=== PATIENT | female | born 1950 | race Caucasian/White ===

== ENCOUNTER 2016-11-09 11:10 | Inpatient (IN) | payer OTHER ==
[2016-11-09 11:59] VITALS: BMI 26.2
[2016-11-09] MEDS ORDERED: Levalbuterol 1.25 MG/3 ML Inhal Soln UD IH STA ×2 (12:12→14:15)
[2016-11-09] MEDS ORDERED: guaiFENesin 200 mg/10 ml Syrup UD PO STA (12:12)
[2016-11-09] MEDS ORDERED: Ipratropium 0.02% Inhal Soln (0.5 mg/2.5 ml) UD IH STA ×2 (12:13→14:15)
[2016-11-09] MEDS ORDERED: Sodium Chloride 0.9% 500 ML IV STA (12:13)
--- NOTE | 2016-11-09 12:20 | ED PDOC ---
Arrival/HPI - General Chief Complaint: Cough, Cold, Congestion Time Seen by Provider: 11/09/16 11:34 Historian: Patient - History of Present Illness Narrative History of Present Illness (Text): 11/09/16 12:05 A 65 year old female, whose past medical history includes pulmonary hypertension , COPD, CAD with stents, and hypothyroidism, was brought in by daughter and presents to the emergency department complaining of fever, cough, and migraine headache for 4 days. Patient has been experiencing migraines for seven years and says that the headache is L sided associated with nausea and feels like a typical migraine. It is not responding to the fioricet which she usually takes for it. It is mentioned that patient had taken oxygen at home but it has been discontinued a few months ago. Patient's daughter reports that patient was visiting from [place] for a family member's wedding, and symptoms began afterwards. Patient notes experiencing nausea, shortness of breath, and constipation, but denies of any vomiting, abdominal pain, diarrhea, or any other complaints. PMD: in [place] Symptom Course: Unchanged Context: Home Past Medical History - Provider Review Nursing Documentation Reviewed: Yes - Travel History If Yes, travel location?: [place] - Infectious Disease Hx of Infectious Diseases: None - Reproductive Menopause: Yes - Cardiac Hx Cardiac Disorders: Yes Hx OH: Yes Hx Hypertension: Yes Other/Comment: stent placed - Pulmonary Hx Respiratory Disorders: Yes Hx Emphysema: Yes Other/Comment: pulmonary HTN - Neurological Hx Neurological Disorder: Yes Hx Migraine: Yes - HEENT Hx HEENT Disorder: No - Renal Hx Renal Disorder: No - Endocrine/Metabolic Hx Endocrine Disorders: Yes Hx Hyperthyroidism: Yes - Hematological/Oncological Hx Blood Disorders: No - Integumentary Hx Dermatological Disorder: No - Musculoskeletal/Rheumatological Hx Musculoskeletal Disorders: Yes Hx Arthritis: Yes - Gastrointestinal Hx Gastrointestinal Disorders: No - Genitourinary/Gynecological Hx Genitourinary Disorders: No - Psychiatric Hx Substance Use: No - Surgical History Hx Cardiac Catheterization: Yes Hx Coronary Stent: Yes Other/Comment: R foot surgery - Anesthesia Hx Anesthesia: Yes Hx Anesthesia Reactions: No Family/Social History - Physician Review Nursing Documentation Reviewed: Yes Family/Social History: No Known Family HX Smoking Status: Never Smoked Hx Alcohol Use: No Hx Substance Use: No Allergies/Home Meds Allergies/Adverse Reactions: Allergies No Known Allergies Allergy (Verified 11/09/16 11:46) Home Medications: Home Meds Medication Instructions Recorded Confirmed Aspirin [Ecotrin] 1 tab PO DAILY 11/09/16 11/09/16 Fenofibrate,Micronized 1 tab PO DAILY 11/09/16 11/09/16 [Fenofibrate] Levothyroxine [Synthroid] 1 tab PO DAILY 11/09/16 11/09/16 Losartan/Hydrochlorothiazide 1 tab PO DAILY 11/09/16 11/09/16 [Losartan-Hctz 100-12.5 mg Tab] Omeprazole [Omeprazole] 20 mg PO DAILY 11/09/16 11/09/16 Sertraline [Zoloft] 50 mg PO DAILY 11/09/16 11/09/16 Sildenafil [Revatio] 20 mg PO TID 11/09/16 11/09/16 diltiaZEM [Cardizem] 60 mg PO DAILY 11/09/16 11/09/16 Review of Systems - Physician Review All systems were reviewed & negative as marked: Yes - Review of Systems Constitutional: Fevers (subjective). absent: Night Sweats ENT: Rhinorrhea (mild) Respiratory: SOB, Cough Cardiovascular: SORENSEN. absent: Chest Pain Gastrointestinal: Nausea. absent: Abdominal Pain, Constipation, Diarrhea, Vomiting Genitourinary Female: absent: Dysuria Neurological: Headache (consistent with previous migraine) Physical Exam Vital Signs Reviewed: Yes (O2 sat is 91-94% on room air) Vital Signs Temp Pulse Resp BP Pulse Ox 11/09/16 13:39 69 18 136/71 95 11/09/16 12:11 99.4 F 11/09/16 11:50 97.3 F L 75 18 138/76 94 L Temperature: Afebrile Blood Pressure: Normal Pulse: Regular Respiratory Rate: Normal Appearance: Positive for: Ill-Appearing Pain Distress: None Mental Status: Positive for: Alert and Oriented X 3 - Systems Exam Head: Present: Atraumatic, Normocephalic Pupils: Present: PERRL Conjunctiva: Present: Normal Mouth: Present: Moist Mucous Membranes Pharnyx: Present: Normal. No: ERYTHEMA, EXUDATE Neck: Present: Normal Range of Motion Respiratory/Chest: Present: Wheezes (mild wheezing). No: Rhonchi Cardiovascular: Present: Regular Rate and Rhythm, Normal S1, S2. No: Murmurs Abdomen: Present: Normal Bowel Sounds. No: Tenderness, Distention, Peritoneal Signs Back: Present: Normal Inspection Upper Extremity: Present: Normal Inspection. No: Cyanosis, Edema Lower Extremity: Present: Normal Inspection. No: Edema Neurological: Present: GCS=15, CN II-XII Intact, Speech Normal Skin: Present: Warm, Dry, Normal Color. No: Rashes Psychiatric: Present: Alert, Oriented x 3, Normal Insight, Normal Concentration Medical Decision Making ED Course and Treatment: 11/09/16 12:13 Impression: 65 year old female with cough, subjective fever, and migraine headache. Physical exam shows mild wheezing. Differential: COPD exacerbation vs pneumonia vs CHF Plan: -- Blood Gas -- EKG -- Chest X-ray -- Urinalysis -- Labs -- Tylenol -- Robitussin -- Atrovent -- Toradol -- Xopenex -- Medrol -- Reglan -- IV Fluids -- Blood Culture -- Reassess and disposition Progress Notes: 11/09/2016 13:17:27 Chest X-ray FINDINGS: LUNGS: There is moderate to severe peribronchial thickening especially on the right consistent with bronchitis. No evidence of pneumonia PLEURA: No significant pleural effusion identified. No pneumothorax apparent. CARDIOVASCULAR: Normal. OSSEOUS STRUCTURES: No significant abnormalities. VISUALIZED UPPER ABDOMEN: Normal. OTHER FINDINGS: None. IMPRESSION: There is moderate to severe peribronchial thickening especially on the right consistent with bronchitis. No evidence of pneumonia Dictator : Mayco Hansen MD 11/09/16 14:10 EKG: Ordered, reviewed, and independently interpreted the EKG. Rate : 74 BPM Rhythm : NSR Interpretation : No ST-segment elevations or depressions, no T-wave inversions, normal intervals. 1/2 mm, ST-segment elevation b5 b6, inteverted T-wave b5 b6, T -wave flattening 2,3 AVF. QRS 106, normal access. Comparison : No previous EKG for comparison. 11/09/16 14:25 Patient with noted history; given steroids and nebs and starting to feel better but persistently hypoxic at 91% on room air, so will need further observation for copd treatment. Additionally, the patient's EKG is abnormal with a history of CAD with stents and no old for comparison. Troponin is 0.03, so indeterminate with an elevated BNP at 1200, so will need further observation on tele and cardiology assessment. Patient will be placed on tele on observation on the on-call attending's service, Dr. Sanches, as discussed with her. - Lab Interpretations Lab Results: 11/09/16 12:18 11/09/16 12:18 Lab Results 11/09/16 12:20: pCO2 32 L, pO2 86.0, HCO3 23.3, ABG pH 7.47 H, ABG Total CO2 24.3, ABG O2 Saturation 97.7, ABG Base Excess 0.2, ABG Potassium 3.6, Glucose 102, Lactate 1.0, FiO2 21.0, Sodium 141.0, Chloride 108.0 H, Arterial Blood Potassium 3.6 11/09/16 12:18: Sodium 145, Potassium 4.4, Chloride 106, Carbon Dioxide 27, Anion Gap 16, BUN 12, Creatinine 0.7, Est GFR ( Amer) > 60, Est GFR (Non- Af Amer) > 60, Random Glucose 104, Calcium 9.3, Total Bilirubin 0.6, AST 52 H, ALT 55, Alkaline Phosphatase 55, Lactate Dehydrogenase 751 H, Total Creatine Kinase 186, Troponin I 0.03, NT-Pro-B Natriuret Pep 1200 H, Total Protein 7.8, Albumin 4.4, Globulin 3.3, Albumin/Globulin Ratio 1.3, Lipase 78 11/09/16 12:18: PT 10.7, INR 0.99, APTT 31.7 H 11/09/16 12:18: WBC 7.6, RBC 4.05, Hgb 12.2, Hct 36.8, MCV 90.9, MCH 30.1, MCHC 33.2, RDW 13.8, Plt Count 185, MPV 11.9 H, Gran % 60.6, Lymph % (Auto) 29.0, [place] % (Auto) 9.2 H, Eos % (Auto) 0.9 L, Baso % (Auto) 0.3, Gran # 4.61, Lymph # 2.2, [place] # 0.7 H, Eos # 0.1, Baso # 0.02 I have reviewed the lab results: Yes - RAD Interpretation Radiology Orders: 11/09/16 12:10 CHEST TWO VIEWS (PA/LAT) [RAD] Stat - Medication Orders Current Medication Orders: Levofloxacin/Dextrose (Levaquin 750mg) 750 mg in 150 mls @ 100 mls/hr IVPB STAT STA Stop: 11/09/16 15:44 Discontinued Medications Acetaminophen (Tylenol 325mg Tab) 650 mg PO STAT STA Stop: 11/09/16 12:14 Last Admin: 11/09/16 12:37 Dose: 650 mg Re-Assess: [facility] Pain/Vitals Document 11/09/16 13:37 GMD (Rec: 11/09/16 14:16 GMD [id number] Pain Reassessment Is This A Pain ReAssessment? Yes Sleep Is patient sleeping during reassessment? Yes Furosemide (Lasix) 40 mg IVP STAT STA Stop: 11/09/16 14:16 Guaifenesin (Robitussin) 400 mg PO ONCE STA Stop: 11/09/16 12:13 Last Admin: 11/09/16 12:36 Dose: 400 mg Sodium Chloride (Sodium Chloride 0.9%) 500 mls @ 999 mls/hr IV .Q31M STA Stop: 11/09/16 12:43 Last Admin: 11/09/16 12:37 Dose: 999 mls/hr Ipratropium [place] (Atrovent) 0.5 mg IH STAT STA Stop: 11/09/16 12:14 Last Admin: 11/09/16 12:37 Dose: 0.5 mg Ipratropium [place] (Atrovent) 0.5 mg IH STAT STA Stop: 11/09/16 14:16 Ketorolac Tromethamine (Toradol) 15 mg IVP STAT STA Stop: 11/09/16 12:14 Last Admin: 11/09/16 12:37 Dose: 15 mg Re-Assess: [facility] Pain Assessment Document 11/09/16 13:37 GMD (Rec: 11/09/16 14:16 GMD [facility] [id number]) Pain Reassessment Is this a pain reassessment? Yes Sleep Is patient sleeping during reassessment? Yes Levalbuterol HCl (Xopenex) 1.25 mg IH STAT STA Stop: 11/09/16 12:13 Last Admin: 11/09/16 12:37 Dose: 1.25 mg Levalbuterol HCl (Xopenex) 1.25 mg IH STAT STA Stop: 11/09/16 14:16 Methylprednisolone (Solu-Medrol) 125 mg IVP STAT STA Stop: 11/09/16 12:14 Last Admin: 11/09/16 12:37 Dose: 125 mg Metoclopramide HCl (Reglan) 10 mg IVP STAT STA Stop: 11/09/16 12:14 Last Admin: 11/09/16 12:37 Dose: 10 mg - Scribe Statement The provider has reviewed the documentation as recorded by the Jet Puente Provider Scribe Attestation: All medical record entries made by the Jet were at my direction and personally dictated by me. I have reviewed the chart and agree that the record accurately reflects my personal performance of the history, physical exam, medical decision making, and the department course for this patient. I have also personally directed, reviewed, and agree with the discharge instructions and disposition. Disposition/Present on Arrival - Present on Arrival Any Indicators Present on Arrival: No History of DVT/PE: No History of Uncontrolled Diabetes: No Urinary Catheter: No History of Decub. Ulcer: No History Surgical Site Infection Following: None - Disposition Have Diagnosis and Disposition been Completed?: Yes Diagnosis: COPD exacerbation, Abnormal EKG Disposition: HOSPITALIZED Disposition Time: 14:00 Patient Plan: Observation, Telemetry Condition: FAIR Forms: [employer] ([place])
[2016-11-09 12:31] LABS: ARTERIAL BLOOD GAS HCO3 23.3 mmol/L (21-28); ARTERIAL BLOOD GAS PH 7.47 (7.35-7.45)
[2016-11-09 12:55] LABS: ALB/GLOB RATIO 1.3 (1.1-1.8); ALKALINE PHOSPHATASE 55 U/L (38-133); ALT/SGPT 55 U/L (7-56); AST/SGOT 52 U/L (15-39); BILIRUBIN,TOTAL 0.6 mg/dL (0.2-1.3); BLOOD UREA NITROGEN 12 mg/dL (7-21); CALCIUM 9.3 mg/dL (8.4-10.5); CARBON DIOXIDE 27 mmol/L (21-33); CHLORIDE 106 mmol/L (98-107); GFR AFRICAN-AMERICAN > 60; GLUCOSE,RANDOM 104 mg/dL (70-110); LIPASE 78 U/L (23-300); POTASSIUM 4.4 mmol/L (3.6-5.0); SODIUM 145 mmol/L (132-148); TOTAL PROTEIN 7.8 g/dL (5.8-8.3)
[2016-11-09 12:56] LABS: BASO # 0.02 K/mm3 (0.0-2.0); BASO % 0.3 % (0.0-3.0); EOS # 0.1 (0.0-0.7); EOS % 0.9 % (1.5-5.0); GRAN # 4.61 (1.4-6.5); GRAN % 60.6 % (50.0-68.0); HEMATOCRIT 36.8 % (36.0-48.0); LYMPH # 2.2 (1.2-3.4); MEAN CELL VOLUME 90.9 fl (80.0-105.0); MEAN CORPUSCULAR HEMOGLOBIN 30.1 pg (25.0-35.0); MEAN CORPUSCULAR HGB CONC 33.2 g/dl (31.0-37.0); MEAN PLATELET VOLUME 11.9 fl (7.0-11.0); MONO # 0.7 (0.1-0.6); MONO % 9.2 % (1.0-6.0); RED CELL DISTRIBUTION WIDTH 13.8 % (11.5-14.5); WHITE BLOOD COUNT 7.6 10^3/ul (4.5-11.0)
[2016-11-09 13:02] LABS: INR 0.99 (0.93-1.08); PARTIAL THROMBOPLASTIN TIME 31.7 Seconds (23.7-30.8)
[2016-11-09 13:08] LABS: TROPONIN I 0.03 ng/mL
--- NOTE | 2016-11-09 13:19 | RAD ---
HISTORY: cough, fever COMPARISON: No prior. TECHNIQUE: Chest PA and lateral FINDINGS: LUNGS: There is moderate to severe peribronchial thickening especially on the right consistent with bronchitis. No evidence of pneumonia PLEURA: No significant pleural effusion identified. No pneumothorax apparent. CARDIOVASCULAR: Normal. OSSEOUS STRUCTURES: No significant abnormalities. VISUALIZED UPPER ABDOMEN: Normal. OTHER FINDINGS: None. IMPRESSION: There is moderate to severe peribronchial thickening especially on the right consistent with bronchitis. No evidence of pneumonia
[2016-11-09] MEDS ORDERED: levoFLOXacin 750 mg in D5W 750 MG/150 ML BAG IVPB STA (14:15)
[2016-11-09 15:03] LABS: URINE APPEARANCE CLEAR (CLEAR); URINE BILIRUBIN NEGATIVE (NEGATIVE); URINE BLOOD NEGATIVE (NEGATIVE); URINE COLOR LIGHT YELLOW (YELLOW); URINE GLUCOSE (UA) NEGATIVE (NEGATIVE); URINE KETONE NEGATIVE (NEGATIVE); URINE LEUKOCYTE ESTERASE NEGATIVE Leu/uL (NEGATIVE); URINE PROTEIN NEGATIVE mg/dL (<30 mg/dL); URINE UROBILINOGEN 0.2 E.U./dL (<1 E.U./dL)
--- NOTE | 2016-11-09 17:04 | CARD ---
APPROVED REPORT EKG Measurement Heart [id number] <Conclusion> Normal sinus rhythm T wave abnormality, consider lateral ischemia Prolonged QT Abnormal ECG
[2016-11-09] MEDS ORDERED: Pneumococcal 23-Valent Vaccine IM ONE (23:26)
[2016-11-10] MEDS: MethylPREDNISolone 40 mg Vial IVP SCH ×3 (05:46→21:48)
--- NOTE | 2016-11-10 07:41 | CON ---
DATE: 11/09/2016 PULMONARY CONSULTATION REFERRING PHYSICIAN: Dr. Sanches. REASON FOR CONSULT: Cough and shortness of breath. HISTORY OF PRESENT ILLNESS: This is a 65-year-old female with past medical history significant for chronic obstructive lung disease, pulmonary hypertension, coronary artery disease, history of coronary stent, and hypothyroid, brought in by daughter to the emergency room with a fever, cough, and shortness of breath and also has been having headache. History of migraine for many years. Admitted to snoring, daytime sleepy and tired. No hemoptysis. No hematemesis. No hematuria. No diarrhea reported. benefit, still has cough and shortness of breath. PAST MEDICAL HISTORY: Chronic obstructive lung disease, coronary artery disease, history of coronary stent, hypothyroid, pulmonary hypertension, history of hyperthyroidism, and degenerative joint disease. FAMILY HISTORY: Not significant cardiopulmonary disease reported. SOCIAL HISTORY: Stopped smoking many years ago. Denies any alcohol use. ALLERGIES: None known. MEDICATIONS: She is on Cardizem 60 mg daily, Cozaar 100 mg daily, Ecotrin 81 mg daily, hydrochlorothiazide 12.5 mg daily, Protonix 40 mg daily, Synthroid 25 mcg daily, Tricor 145 mg daily, Zoloft 50 mg daily. REVIEW OF SYSTEMS: Has headache, rhinitis, cough, and shortness of breath. Admitted to having snoring, daytime sleepy and tired. No nausea. No vomiting. No leg pain or leg swelling. PHYSICAL EXAMINATION: GENERAL: Lying in the bed, in no acute distress. VITAL SIGNS: Temp is 98, heart rate is 87, respiratory rate is 20, blood pressure 130/69, pulse ox 96% on room air. HEENT: Moist mucous membranes. No oral thrush noted. NECK: Supple. No JVD. LUNGS: Bilateral expiratory wheezing. HEART: S1 and S2. ABDOMEN: Soft and nontender. No organomegaly. EXTREMITIES: There is no edema. NEUROLOGICAL: Awake, alert. Follows simple commands. LABORATORY DATA: Shows hemoglobin 12.2, hematocrit 36.8, WBC 7.6, and platelet count is 185. INR is 0.9, PTT 32. ABG shows pH 7.47, pCO2 of 32, O2 of 86. Sodium 144, potassium 4.4, chloride 106, bicarbonate 27, BUN 12, creatinine 0.7, calcium 9.3. Total bilirubin is 0.6, AST 52, ALT 55, alkaline phosphatase is 55. LDH 751. Troponin is 0.03. Pro-BNP is 1200. Lipase 78. Chest x-ray is suggestive of bronchitis. IMPRESSION AND PLAN: Exacerbation of chronic obstructive lung disease, chronic obstructive pulmonary disease, history of hyperthyroidism, coronary artery disease with history of coronary stent, and may have sleep apnea syndrome with chronic headaches. We will add IV and inhaled bronchodilators, antibiotics, gastric prophylaxis, deep venous thrombosis prophylaxis. We will get echocardiogram to assess right ventricular and left ventricular function. She will need pulmonary function test as an outpatient and also attended sleep study. Thank you and we will follow with you. Bo Johnston MD
[2016-11-10] MEDS: Levalbuterol 0.63 MG/3 ML Inhal Soln UD IH SCH ×3 (07:57→19:46)
[2016-11-10] MEDS: Levothyroxine 25 MCG TAB PO SCH (09:43)
[2016-11-10] MEDS: Pantoprazole 40 mg EC Tab PO SCH (09:43)
[2016-11-10] MEDS: Enoxaparin 30 mg Syringe SC SCH (09:44)
[2016-11-10] MEDS: Aspirin 325 mg EC Tablets PO SCH (09:45)
[2016-11-10] MEDS ORDERED: FENOFIBRATE MICRONIZED PO SCH (10:00)
[2016-11-10] MEDS ORDERED: DILTIAZEM 60 MG PO SCH (10:00)
[2016-11-10] MEDS ORDERED: Non Formulary Medication (Losartan/Hydrochlorothiazide [Losartan-Hctz 100-12.5 Mg Tab] 1 T PO SCH (10:00)
[2016-11-10] MEDS ORDERED: Levothyroxine 25 MCG TAB PO SCH (10:00)
--- NOTE | 2016-11-10 21:24 | CP.PCM.PN ---
Subjective - Date & Time of Evaluation Date of Evaluation: 11/10/16 Time of Evaluation: 21:23 - Subjective Subjective: Patient was seen at bedsider. Complaining of nausea for past 10 minutes.No vomitng. Has no other complaints now. Denies head ache, dizziness, chest pain, sob, abdominal pain, diarrhoea. States that she has constipation and sometimes has nausea when she has migraines. Medical record was reviewe. 65 year old woman admitted with fever , cough, sob, exacerbation of COPD. Has PMH of COPD ,pulmonary HTN, CAD ,Coronary stent ,HypothyroidismDJD ,Hx hyperthyroidism ,Ex smoker. Objective - Vital Signs/Intake and Output Vital Signs (last 24 hours): Temp Pulse Resp BP Pulse Ox 98 F 78 20 137/71 98 11/10/16 17:54 11/10/16 18:00 11/10/16 17:54 11/10/16 17:54 11/10/16 06:00 - Medications Medications: Current Medications Aspirin (Ecotrin) 1 mg PO DAILY [facility] Last Admin: 11/10/16 09:45 Dose: 1 mg Diltiazem HCl (Cardizem) 60 mg PO DAILY [facility] Last Admin: 11/10/16 09:43 Dose: 60 mg Doxycycline Hyclate (Doryx) 100 mg PO Q12 [facility] PRN Reason: Protocol Last Admin: 11/10/16 09:42 Dose: 100 mg Enoxaparin Sodium (Lovenox) 30 mg SC DAILY [facility] PRN Reason: Protocol Last Admin: 11/10/16 09:44 Dose: 30 mg Fenofibrate (Tricor) 145 mg PO DAILY [facility] Last Admin: 11/10/16 09:43 Dose: 145 mg Hydrochlorothiazide (Microzide) 12.5 mg PO DAILY [facility] Last Admin: 11/10/16 09:43 Dose: 12.5 mg Levalbuterol HCl (Xopenex) 0.63 mg IH TIDRESP [facility] Last Admin: 11/10/16 19:46 Dose: 0.63 mg Levothyroxine Sodium (Synthroid) 25 mcg PO DAILY [facility] Last Admin: 11/10/16 09:43 Dose: 25 mcg Losartan Potassium (Cozaar) 100 mg PO DAILY [facility] Last Admin: 11/10/16 09:42 Dose: 100 mg Methylprednisolone (Solu-Medrol) 40 mg IVP Q8 [facility] Last Admin: 11/10/16 16:00 Dose: 40 mg Ondansetron HCl (Zofran Inj) 4 mg IVP STAT STA Stop: 11/10/16 21:23 Pantoprazole Sodium (Protonix Ec Tab) 40 mg PO [facility] Last Admin: 11/10/16 09:43 Dose: 40 mg Sertraline HCl (Zoloft) 50 mg PO DAILY [facility] Last Admin: 11/10/16 09:45 Dose: 50 mg - Labs Labs: PT 10.7 Seconds (9.9-11.8) 11/09/16 12:18 INR 0.99 (0.93-1.08) 11/09/16 12:18 APTT 31.7 Seconds (23.7-30.8) H 11/09/16 12:18 Laboratory Last Values WBC 7.6 10^3/ul (4.5-11.0) 11/09/16 12:18 RBC 4.05 10^6/uL (3.5-6.1) 11/09/16 12:18 Hgb 12.2 g/dL (12.0-16.0) 11/09/16 12:18 Hct 36.8 % (36.0-48.0) 11/09/16 12:18 MCV 90.9 fl (80.0-105.0) 11/09/16 12:18 MCH 30.1 pg (25.0-35.0) 11/09/16 12:18 MCHC 33.2 g/dl (31.0-37.0) 11/09/16 12:18 RDW 13.8 % (11.5-14.5) 11/09/16 12:18 Plt Count 185 10^3/uL (120.0-450.0) 11/09/16 12:18 MPV 11.9 fl (7.0-11.0) H 11/09/16 12:18 Gran % 60.6 % (50.0-68.0) 11/09/16 12:18 Lymph % (Auto) 29.0 % (22.0-35.0) 11/09/16 12:18 [place] % (Auto) 9.2 % (1.0-6.0) H 11/09/16 12:18 Eos % (Auto) 0.9 % (1.5-5.0) L 11/09/16 12:18 Baso % (Auto) 0.3 % (0.0-3.0) 11/09/16 12:18 Gran # 4.61 (1.4-6.5) 11/09/16 12:18 Lymph # 2.2 (1.2-3.4) 11/09/16 12:18 [place] # 0.7 (0.1-0.6) H 11/09/16 12:18 Eos # 0.1 (0.0-0.7) 11/09/16 12:18 Baso # 0.02 K/mm3 (0.0-2.0) 11/09/16 12:18 PT 10.7 Seconds (9.9-11.8) 11/09/16 12:18 INR 0.99 (0.93-1.08) 11/09/16 12:18 APTT 31.7 Seconds (23.7-30.8) H 11/09/16 12:18 pCO2 32 mm/Hg (35-45) L 11/09/16 12:20 pO2 86.0 mm/Hg (80-100) 11/09/16 12:20 HCO3 23.3 mmol/L (21-28) 11/09/16 12:20 ABG pH 7.47 (7.35-7.45) H 11/09/16 12:20 ABG Total CO2 24.3 mmol.L (22-28) 11/09/16 12:20 ABG O2 Saturation 97.7 % (95-98) 11/09/16 12:20 ABG Base Excess 0.2 mmol/L (-2.0-3.0) 11/09/16 12:20 ABG Potassium 3.6 mmol/L (3.6-5.2) 11/09/16 12:20 Sodium 141.0 mmol/L (132-148) 11/09/16 12:20 Chloride 108.0 mmol/L (98-107) H 11/09/16 12:20 Glucose 102 mg/dl (65-105) 11/09/16 12:20 Lactate 1.0 mmol/L (0.7-2.1) 11/09/16 12:20 FiO2 21.0 % 11/09/16 12:20 Sodium 145 mmol/L (132-148) 11/09/16 12:18 Potassium 4.4 mmol/L (3.6-5.0) 11/09/16 12:18 Chloride 106 mmol/L (98-107) 11/09/16 12:18 Carbon Dioxide 27 mmol/L (21-33) 11/09/16 12:18 Anion Gap 16 (10-20) 11/09/16 12:18 BUN 12 mg/dL (7-21) 11/09/16 12:18 Creatinine 0.7 mg/dL (0.5-1.4) 11/09/16 12:18 Est GFR ( Amer) > 60 11/09/16 12:18 Est GFR (Non-Af Amer) > 60 11/09/16 12:18 Random Glucose 104 mg/dL (70-110) 11/09/16 12:18 Calcium 9.3 mg/dL (8.4-10.5) 11/09/16 12:18 Total Bilirubin 0.6 mg/dL (0.2-1.3) 11/09/16 12:18 AST 52 U/L (15-39) H 11/09/16 12:18 ALT 55 U/L (7-56) 11/09/16 12:18 Alkaline Phosphatase 55 U/L (38-133) 11/09/16 12:18 Lactate Dehydrogenase 751 U/L (333-699) H 11/09/16 12:18 Total Creatine Kinase 186 U/L (35-230) 11/09/16 12:18 Troponin I 0.03 ng/mL 11/09/16 12:18 NT-Pro-B Natriuret Pep 1200 pg/mL (0-450) H 11/09/16 12:18 Total Protein 7.8 g/dL (5.8-8.3) 11/09/16 12:18 Albumin 4.4 g/dL (3.0-4.8) 11/09/16 12:18 Globulin 3.3 gm/dL 11/09/16 12:18 Albumin/Globulin Ratio 1.3 (1.1-1.8) 11/09/16 12:18 Lipase 78 U/L (23-300) 11/09/16 12:18 Arterial Blood Potassium 3.6 mmol/L (3.6-5.2) 11/09/16 12:20 Urine Color Light yellow (YELLOW) 11/09/16 14:46 Urine Appearance Clear (CLEAR) 11/09/16 14:46 Urine pH 6.0 (4.7-8.0) 11/09/16 14:46 Ur Specific [place] 1.015 (1.005-1.035) 11/09/16 14:46 Urine Protein Negative mg/dL (<30 mg/dL) 11/09/16 14:46 Urine Glucose (UA) Negative mg/dL (NEGATIVE) 11/09/16 14:46 Urine Ketones Negative mg/dL (NEGATIVE) 11/09/16 14:46 Urine Blood Negative (NEGATIVE) 11/09/16 14:46 Urine Nitrate Negative (NEGATIVE) 11/09/16 14:46 Urine Bilirubin Negative (NEGATIVE) 11/09/16 14:46 Urine Urobilinogen 0.2 E.U./dL (<1 E.U./dL) 11/09/16 14:46 Ur Leukocyte Esterase Negative [place]/uL (NEGATIVE) 11/09/16 14:46 - Constitutional Appears: Well, No Acute Distress - Head Exam Head Exam: ATRAUMATIC, NORMAL INSPECTION, NORMOCEPHALIC - Eye Exam Eye Exam: Normal appearance - ENT Exam ENT Exam: Normal External Ear Exam - Neck Exam Neck Exam: Normal Inspection - Respiratory Exam Respiratory Exam: NORMAL BREATHING PATTERN - Cardiovascular Exam Cardiovascular Exam: absent: JVD - GI/Abdominal Exam GI & Abdominal Exam: Soft, Normal Bowel Sounds. absent: Distended, Firm, Guarding, Rigid, Tenderness, Mass, Pulsatile Mass, Rebound - Rectal Exam Rectal Exam: Deferred - Exam Additional comments: Deferred. - Extremities Exam Extremities Exam: Normal Inspection - Back Exam Back Exam: NORMAL INSPECTION - Neurological Exam Neurological Exam: Alert, Awake, Oriented x3 - Psychiatric Exam Psychiatric exam: Normal Affect, Normal Mood - Skin Skin Exam: Normal Color Assessment and Plan - Assessment and Plan (Free Text) Assessment: Nausea-Gastritis. -CHF. -On Steroid. -Hx migraine. CHF. Pulmonary HTN. COPD CAD Coronary stent placement Hx Hypothyroidism DJD Hx hyperthyroidism Ex smoker. Plan: Zofran 4 mg IV stat. Continue present management.
--- NOTE | 2016-11-10 23:08 | PN ---
PULMONARY PROGRESS NOTE DATE: 11/10/2016 REFERRING PHYSICIAN: Dr. Sanches. SUBJECTIVE: She is out of bed to chair, feels better, decreased cough, decreased shortness of breath. No nausea. No vomiting. No diarrhea. No leg pain or leg swelling. Admitted to having snoring nighttime and daytime sleepy and tired. PHYSICAL EXAMINATION: GENERAL: No acute distress. VITAL SIGNS: Temperature is 98, heart rate is 85, respiratory rate is 18 and blood pressure 137/71. HEENT: Moist mucous membranes. Crowded airway. Mallampati score is 4. NECK: Supple. No JVD. LUNGS: Has prolonged expiratory phase with some wheezing. HEART: S1 and S2. ABDOMEN: Soft and nontender. No organomegaly. EXTREMITIES: No edema. NEUROLOGIC: Awake and alert. Follows simple commands. MEDICATIONS: She is on Cardizem 60 mg daily, Cozaar 100 mg daily, Doxycycline 100 mg twice a day, Ecotrin 81 mg daily, Lovenox 30 mg daily, hydrochlorothiazide 12.5 mg daily, Protonix 40 mg daily, Solu-Medrol 40 mg q. 8 hours, Synthroid 25 mcg daily, Tricor 125 mg daily, Xopenex inhaled 3 times a day and Zoloft 50 mg daily. LABORATORY DATA: Reviewed and noted, no new changes in medication reported. Since yesterday microbiology blood culture has been negative. IMPRESSION AND PLAN: May have sleep apnea syndrome, hyperthyroidism, coronary artery disease, history of coronary stent, history of chronic headaches, has high BNP. Continue IV and inhaled bronchodilator, antibiotics. Consider sleep study as an outpatient. Pulmonary function test as an outpatient. Followup labs in the morning. Thank you and we will follow with you. Bo Johnston MD
[2016-11-11 06:20] LABS: HEMATOCRIT 35.9 % (36.0-48.0); MEAN CELL VOLUME 90.2 fl (80.0-105.0); MEAN CORPUSCULAR HEMOGLOBIN 29.4 pg (25.0-35.0); MEAN CORPUSCULAR HGB CONC 32.6 g/dl (31.0-37.0); MEAN PLATELET VOLUME 12.3 fl (7.0-11.0); RED CELL DISTRIBUTION WIDTH 13.6 % (11.5-14.5); WHITE BLOOD COUNT 23.9 10^3/ul (4.5-11.0)
[2016-11-11] MEDS: MethylPREDNISolone 40 mg Vial IVP SCH ×3 (06:29→21:58)
[2016-11-11 06:46] LABS: ALB/GLOB RATIO 1.3 (1.1-1.8); ALKALINE PHOSPHATASE 55 U/L (38-133); ALT/SGPT 50 U/L (7-56); AST/SGOT 40 U/L (15-39); BILIRUBIN,TOTAL 0.4 mg/dL (0.2-1.3); BLOOD UREA NITROGEN 19 mg/dL (7-21); CARBON DIOXIDE 28 mmol/L (21-33); CHLORIDE 104 mmol/L (98-107); GFR AFRICAN-AMERICAN > 60; GLUCOSE,RANDOM 170 mg/dL (70-110); POTASSIUM 5.1 mmol/L (3.6-5.0); SODIUM 145 mmol/L (132-148); TOTAL PROTEIN 7.2 g/dL (5.8-8.3)
[2016-11-11] MEDS: Levalbuterol 0.63 MG/3 ML Inhal Soln UD IH SCH ×3 (07:21→20:08)
--- NOTE | 2016-11-11 07:26 | CON ---
DATE: 11/10/2016 LOCATION: The patient is in room #269, bed #2. REASON FOR CONSULTATION: Shortness of breath, and coronary artery disease. HISTORY OF PRESENT ILLNESS: The patient is a 65-year-old female who lives permanently in [place] is visiting for her daughter's wedding and she states that since last five days she is having cough, white expectoration and felt warm which is just above fever. She is also known to have coronary artery disease with stent insertion in the past and hypothyroidism. She states that she has community liaison and pulmonary physician in [place] with whom she follows regularly. The patient also has history of high blood pressure and being pre-diabetic. The patient denies any chest pain or palpation. She sleeps on two pillow. Denies any PND. PAST MEDICAL HISTORY: Positive for COPD, coronary artery disease, 3 stents insertion, hypertension, she is pre-diabetic, hypothyroidism. PERSONAL HISTORY: Used to smoke two packs a day, stopped 30 years ago. Denies drinking. ALLERGIES: DENIES ANY ALLERGIES. PAST HISTORY OF SURGERY: The patient has right foot surgery. FAMILY HISTORY: Father at age 83 had PA and mother diabetic and she had also PA at age 78. MEDICATIONS HOME: The patient is on fenofibrate one tablet daily, aspirin one daily, Revatio 20 mg t.i.d., Zoloft 50 mg daily, omeprazole 20 mg daily, Synthroid one tablet daily, and Cardizem 60 p.o. daily. PHYSICAL EXAMINATION: VITAL SIGNS: Blood pressure 137/71, respiratory 20, pulse 85, and temperature 98. HEENT: Head is normocephalic. Eyes; pupils normal. Conjunctivae normal. Nose and throat normal. NECK: JVP low. Carotids equal. THORAX: AP diameter normal. LUNGS: Slight expiratory wheezing. No rales. CARDIOVASCULAR: S1 and S2, no rub, no gallop, no click. ABDOMEN: Soft. Nontender. No organomegaly. Bowel sounds normal. EXTREMITIES: No clubbing. No cyanosis. LABORATORY DATA: WBC 7.6, hemoglobin 12.2, hematocrit 36.8 and platelet 185. Sodium 145, potassium 4.5, BUN 12, creatinine 0.7, AST 52, ALT 55, LDH 751, troponin 0.03, and NT-pro B-type natriuretic peptide 1200. Total protein and albumin normal. EKG showed regular sinus rhythm, poor R progression, V1-V3 ST-T changes. Chest x-ray moderate to severe peribronchial thickening, especially on the right consistent with the bronchitis. No pneumonia or CHF is seen. DIAGNOSES: The patient has shortness of breath and cough symptoms suggestive of exacerbation of chronic obstructive pulmonary disease with respiratory tract infection. The patient known coronary artery disease, history of three stents insertion, but no general symptoms are present, hypothyroidism, hypertension, patient pre-diabetic, history of also migraine headaches. PLAN: Patient already on diltiazem 60 daily, losartan 100 mg daily, Doryx 100 mg p.o. q. 12 hours, aspirin one tablet daily, Lovenox 30 mg subQ daily, hydrochlorothiazide 12.5 mg p.o. daily, Protonix 40 daily, Solu-Medrol 40 mg IV q. 8 hour, Synthroid 25 mcg p.o. daily, fenofibrate 145 mg p.o. daily, Xopenex and nebulizer therapy, Zoloft 50 mg daily. The patient states that she follows with a regular community liaison and pulmonary physician in [place] where she lives and she get her testing done with them regularly, so we will continue present therapy and will follow closely with you. Bo Dominguez MD
[2016-11-11] MEDS: Pantoprazole 40 mg EC Tab PO SCH (08:43)
[2016-11-11] MEDS: Aspirin 325 mg EC Tablets PO SCH (10:47)
[2016-11-11] MEDS: Levothyroxine 25 MCG TAB PO SCH (10:48)
[2016-11-11] MEDS: Enoxaparin 30 mg Syringe SC SCH (10:49)
[2016-11-11] MEDS: POLYETHYLENE GLYCOL 3350 17 GM/Dose PACKET PO SCH ×2 (10:54→17:33)
--- NOTE | 2016-11-11 11:02 | CP.PCM.CON ---
<ShayanmitraduaneGianni - Last Filed: 11/11/16 11:03> History of Present Illness - History of Present Illness History of Present Illness: 65 y/o F with PMH of COPD, HLD, CAD s/p stent placement, hypothyroidism, pulmonary hypertension, and DJD presented to the hospital for SOB and migraines. Patient was eventually admitted for COPD exacerbation. Patient states she gets headaches almost everyday. She feels them starting on the posterior aspect of the left side of her head and then moves around to the front left side of her face. Patient states she takes Fiorcet when her headaches get too bad, but it has not been working at this time. She states she has been on a medication in the past for her headaches, but she does not remember the name and it did not help much at that time. Patient denies having any auras when having her headaches. At this time, she does not have any headaches. She states she had a headache yesterday that lasted for a brief period of time. Denies CP, SOB, N/V/D, fever, chills, syncope, changes in vision , numbness, tingling, incontinence. PMH: COPD, HLD, CAD s/p stent placement, hypothyroidism, pulmonary hypertension , and DJD Surgical Hx: Right Bunionectomy FMH: CAD, DM Social Hx: Former tobacco user, quit 32 years ago. Denies alcohol or illicit drugs Allergies: NKDA Medications: Reviewed, as per MAR Review of Systems - Review of Systems Review of Systems: 13 point review of systems as per HPI, otherwise negative Past Patient History - Infectious Disease Hx of Infectious Diseases: None - Past Social History Smoking Status: Former Smoker - CARDIAC Hx Cardiac Disorders: Yes Hx Hypertension: Yes Other/Comment: stent placed - PULMONARY Hx Respiratory Disorders: Yes Hx Chronic Obstructive Pulmonary Disease (COPD): Yes (11-09-16) Hx Emphysema: Yes Other/Comment: pulmonary HTN - NEUROLOGICAL Hx Neurological Disorder: Yes Hx Migraine: Yes - HEENT Hx HEENT Problems: No - RENAL Hx Chronic Kidney Disease: No - ENDOCRINE/METABOLIC Hx Endocrine Disorders: Yes Hx Hyperthyroidism: Yes - HEMATOLOGICAL/ONCOLOGICAL Hx Blood Disorders: No - INTEGUMENTARY Hx Dermatological Problems: No - MUSCULOSKELETAL/RHEUMATOLOGICAL Hx Musculoskeletal Disorders: Yes Hx Arthritis: Yes Hx Falls: No - GASTROINTESTINAL Hx Gastrointestinal Disorders: No - GENITOURINARY/GYNECOLOGICAL Hx Genitourinary Disorders: No - PSYCHIATRIC Hx Substance Use: No - SURGICAL HISTORY Hx Surgeries: Yes (CARD CATH WITH 3 HEART STENTS) Hx Cardiac Catheterization: Yes Hx Coronary Stent: Yes (X3) Other/Comment: R foot surgery - ANESTHESIA Hx Anesthesia: Yes Hx Anesthesia Reactions: No Meds Home Medications: Home Medication List Medication Instructions Recorded Confirmed Type Doxycycline Hyclate 100 mg PO DAILY #7 cap 11/13/16 Rx Omeprazole [Omeprazole] 20 mg PO DAILY #30 tab 11/13/16 Rx predniSONE [Prednisone] See Taper PO DAILY #5 tab 11/13/16 Rx Allergies/Adverse Reactions: Allergies Allergy/AdvReac Type Severity Reaction Status Date / Time No Known Allergies Allergy Verified 11/09/16 20:02 - Medications Medications: Current Medications Aspirin (Ecotrin) 1 mg PO DAILY [facility] Last Admin: 11/10/16 09:45 Dose: 1 mg Diltiazem HCl (Cardizem) 60 mg PO DAILY [facility] Last Admin: 11/10/16 09:43 Dose: 60 mg Docusate Sodium (Colace) 100 mg PO DAILY [facility] Doxycycline Hyclate (Doryx) 100 mg PO Q12 [facility] PRN Reason: Protocol Last Admin: 11/10/16 21:47 Dose: 100 mg Enoxaparin Sodium (Lovenox) 30 mg SC DAILY [facility] PRN Reason: Protocol Last Admin: 11/10/16 09:44 Dose: 30 mg Fenofibrate (Tricor) 145 mg PO DAILY [facility] Last Admin: 11/10/16 09:43 Dose: 145 mg Hydrochlorothiazide (Microzide) 12.5 mg PO DAILY [facility] Last Admin: 11/10/16 09:43 Dose: 12.5 mg Levalbuterol HCl (Xopenex) 0.63 mg IH TIDRESP [facility] Last Admin: 11/11/16 07:21 Dose: 0.63 mg Levothyroxine Sodium (Synthroid) 25 mcg PO DAILY [facility] Last Admin: 11/10/16 09:43 Dose: 25 mcg Losartan Potassium (Cozaar) 100 mg PO DAILY [facility] Last Admin: 11/10/16 09:42 Dose: 100 mg Methylprednisolone (Solu-Medrol) 40 mg IVP Q8 [facility] Last Admin: 11/11/16 06:29 Dose: 40 mg Pantoprazole Sodium (Protonix Ec Tab) 40 mg PO ACB [facility] Last Admin: 11/11/16 08:43 Dose: 40 mg Polyethylene Glycol (Miralax) 17 gm PO BID [facility] Sertraline HCl (Zoloft) 50 mg PO DAILY [facility] Last Admin: 11/10/16 09:45 Dose: 50 mg Physical Exam - Constitutional Appears: Well, No Acute Distress - Head Exam Head Exam: ATRAUMATIC, NORMAL INSPECTION, NORMOCEPHALIC - Eye Exam Eye Exam: EOMI - ENT Exam ENT Exam: Mucous Membranes Moist - Respiratory Exam Respiratory Exam: Clear to Auscultation Bilateral, NORMAL BREATHING PATTERN. absent: Rales, Rhonchi, Wheezes - Cardiovascular Exam Cardiovascular Exam: RRR, +S1, +S2 - GI/Abdominal Exam GI & Abdominal Exam: Normal Bowel Sounds, Soft. absent: Tenderness - Extremities Exam Extremities exam: Positive for: normal inspection. Negative for: pedal edema - Neurological Exam Neurological exam: Alert, CN II-XII Intact, Oriented x3 Additional comments: No motor or sensory deficits No pronator drift No dysmetria - Psychiatric Exam Psychiatric exam: Normal Affect, Normal Mood - Skin Skin Exam: Intact, Normal Color, Warm Results - Vital Signs Recent Vital Signs: Last Vital Signs Temp 97.8 F 11/11/16 06:00 Pulse 74 11/11/16 06:00 Resp 20 11/11/16 06:00 BP 118/69 11/11/16 06:00 Pulse Ox 97 11/11/16 06:00 - Labs Result Diagrams: 11/11/16 05:30 11/11/16 05:30 Labs: Laboratory Results - last 24 hr 11/11/16 11/11/16 05:30 05:30 WBC 23.9 H D RBC 3.98 Hgb 11.7 L Hct 35.9 L MCV 90.2 MCH 29.4 MCHC 32.6 RDW 13.6 Plt Count 223 MPV 12.3 H Sodium 145 Potassium 5.1 H Chloride 104 Carbon Dioxide 28 Anion Gap 18 BUN 19 Creatinine 0.7 Est GFR ( Amer) > 60 Est GFR (Non-Af Amer) > 60 Random Glucose 170 H Calcium 9.0 Total Bilirubin 0.4 AST 40 H ALT 50 Alkaline Phosphatase 55 Total Protein 7.2 Albumin 4.1 Globulin 3.1 Albumin/Globulin Ratio 1.3 Assessment & Plan - Assessment and Plan (Free Text) Plan: 65 y/o F with PMH of COPD, HLD, CAD s/p stent placement, hypothyroidism, pulmonary hypertension, and DJD with migraines in the setting of COPD exacerbation. Patient with hx of migraines and failed outpatient Fiorcet therapy outpatient. Patient will be started on low dose Topamax to assist in Migraine prevention and continue Fioricet for acute migraine pain. Patient is neurologically stable at this time, will sign off. Please reconsult as needed. Plan: Topamax 50 mg qhs Fioricet 1 tab q6h for acute headache pain Continue treatment for COPD exacerbation Monitor Electrolytes Awais, PGY-2 <Luis Palacios - Last Filed: 11/15/16 11:03> Results - Vital Signs Recent Vital Signs: Last Vital Signs Temp 98.1 F 11/13/16 11:55 Pulse 73 11/13/16 11:55 Resp 18 11/13/16 11:55 BP 120/66 11/13/16 11:55 Pulse Ox 93 L 11/13/16 06:00 - Labs Result Diagrams: 11/13/16 07:20 11/13/16 07:20 Attending/Attestation - Attestation I have personally seen and examined this patient.: Yes I have fully participated in the care of the patient.: Yes I have reviewed all pertinent clinical information: Yes
--- NOTE | 2016-11-11 11:10 | HP ---
CHIEF COMPLAIN: Cough, cold and congestion. HISTORY OF PRESENT ILLNESS: Mrs. Danita Abdul is a 65 years old female with past medical history of pulmonary hypertension, chronic obstructive pulmonary disease, coronary artery disease with cardiac stents, hypothyroidism, was brought by daughter to the emergency room complaining of fever, cough, migraine headache for 4 days. The patient has been experiencing migraines for seven years and she states that the headache is on the left side associated with nausea and feeling like atypical migraine. It is not responding to the Fioricet, which she usually takes for it. The patient used to use oxygen at home, was discontinued few months ago. The patient's daughter reports that the patient was visiting from [place] for a family member's wedding and symptoms began afterwards after marriage. The patient noted experiencing nausea, shortness of breath, and constipation but denies any vomiting. PAST MEDICAL HISTORY: COPD, asthma, migraine, history of NC, coronary stent, history of emphysema, hyperthyroidism, arthritis, and coronary stents. FAMILY HISTORY: Father and mother noncontributory. HABITS: Never smoked. No drugs, no ethanol. ALLERGIES: THE PATIENT IS NOT ALLERGIC TO ANY MEDICATIONS. HOME MEDICATIONS: Ecotrin, Fenofibrate, Synthroid, losartan, omeprazole, Zoloft, and Cardizem. REVIEW OF SYSTEMS: The patient seen and examined at the bedside, looking comfortable. Still coughing with shortness of breath, especially on exertion. Sometimes getting headache. No hematuria or hematochezia. PHYSICAL EXAMINATION: VITAL SIGNS: Temperature 98.0, pulse 55, respiratory rate 20, and blood pressure 137/71. HEENT: Head normocephalic and atraumatic. Eyes, PERRLA. Extraocular muscles intact. Conjunctivae are clear. Nose is patent. Mucous membrane moist.. NECK: Supple. No carotid bruits. No thyromegaly. CHEST: Bilateral symmetrical. HEART: S1 and S2 positive. LUNGS: Clear to auscultation. ABDOMEN: Soft. Bowel sounds positive. No organomegaly. EXTREMITIES: No edema and no cyanosis. NEUROLOGICAL: The patient is awake and alert. Moving all 4 extremities. No focal deficit. MEDICATIONS: Cardizem, Cozaar, doxycycline, Ecotrin, Lovenox, Microzide, Protonix, methylprednisolone, Synthroid, and Tricor. LABORATORY DATA: WBC 7.6, hemoglobin 12.2, hematocrit 36.8, and platelets 185. Sodium 145, potassium 4.4, BUN 12, creatinine 0.7. AST 52, ALT 751. ASSESSMENT AND PLAN: Ms. Danita Abdul is 65 years old lady with abnormal liver function test, congestive heart failure, migraine headache, coronary artery disease, history of cardiac stenting, hypothyroidism, pulmonary hypertension, hyperthyroidism, history of degenerative joint disease, came with exacerbation of chronic lung disease, sleep apnea syndrome. for the patient other than inhaled bronchodilators, gastric prophylaxis, DVT prophylaxis. We will get echocardiogram to assess right ventricular and left ventricular function. We will do PFTs as outpatient. Length of time discussion done with the patient. We will repeat labs. Josselyn Sanches MD MTDD
--- NOTE | 2016-11-11 12:47 | CP.PCM.PN ---
<Kristina Bolton - Last Filed: 11/11/16 13:02> Subjective - Date & Time of Evaluation Date of Evaluation: 11/11/16 Time of Evaluation: 07:50 - Subjective Subjective: Kristina Bolton DO, PGY-1, Internal Medicine, Hospitalist Service Patient seen and examined at bedside. Per nursing no acute events overnight. Patient reports breathing is improving but still sob when talking. Patient is ambulating and tolerating. Coughing with clear phelgm. Also reports having Headache and constipation. Denies dizziness, cp, palpitations, abdominal pain, urinary symptoms. Objective - Vital Signs/Intake and Output Vital Signs (last 24 hours): Temp Pulse Resp BP Pulse Ox 98.1 F 70 20 129/62 97 11/11/16 12:00 11/11/16 12:00 11/11/16 12:00 11/11/16 12:00 11/11/16 06:00 Intake and Output: 11/11/16 11/11/16 06:59 18:59 Intake Total 240 Output Total 0 Balance 240 - Medications Medications: Current Medications Aspirin (Ecotrin) 1 mg PO DAILY [facility] Last Admin: 11/11/16 10:47 Dose: 1 mg Diltiazem HCl (Cardizem) 60 mg PO DAILY [facility] Last Admin: 11/11/16 10:49 Dose: 60 mg Docusate Sodium (Colace) 100 mg PO DAILY [facility] Last Admin: 11/11/16 10:48 Dose: 100 mg Doxycycline Hyclate (Doryx) 100 mg PO Q12 [facility] PRN Reason: Protocol Last Admin: 11/11/16 10:47 Dose: 100 mg Enoxaparin Sodium (Lovenox) 30 mg SC DAILY [facility] PRN Reason: Protocol Last Admin: 11/11/16 10:49 Dose: 30 mg Fenofibrate (Tricor) 145 mg PO DAILY [facility] Last Admin: 11/11/16 10:49 Dose: 145 mg Hydrochlorothiazide (Microzide) 12.5 mg PO DAILY [facility] Last Admin: 11/11/16 10:48 Dose: 12.5 mg Levalbuterol HCl (Xopenex) 0.63 mg IH TIDRESP [facility] Last Admin: 11/11/16 07:21 Dose: 0.63 mg Levothyroxine Sodium (Synthroid) 25 mcg PO DAILY [facility] Last Admin: 11/11/16 10:48 Dose: 25 mcg Losartan Potassium (Cozaar) 100 mg PO DAILY [facility] Last Admin: 11/11/16 10:48 Dose: 100 mg Methylprednisolone (Solu-Medrol) 40 mg IVP Q8 [facility] Last Admin: 11/11/16 06:29 Dose: 40 mg Pantoprazole Sodium (Protonix Ec Tab) 40 mg PO ACB [facility] Last Admin: 11/11/16 08:43 Dose: 40 mg Polyethylene Glycol (Miralax) 17 gm PO BID [facility] Last Admin: 11/11/16 10:54 Dose: 17 gm Sertraline HCl (Zoloft) 50 mg PO DAILY [facility] Last Admin: 11/11/16 10:49 Dose: Not Given - Labs Labs: 11/11/16 05:30 11/11/16 05:30 PT 10.7 Seconds (9.9-11.8) 11/09/16 12:18 INR 0.99 (0.93-1.08) 11/09/16 12:18 APTT 31.7 Seconds (23.7-30.8) H 11/09/16 12:18 - Constitutional Appears: Well, No Acute Distress - Head Exam Head Exam: ATRAUMATIC, NORMAL INSPECTION - Eye Exam Eye Exam: EOMI, Normal appearance Pupil Exam: NORMAL ACCOMODATION - ENT Exam ENT Exam: Mucous Membranes Moist - Neck Exam Neck Exam: Full ROM - Respiratory Exam Respiratory Exam: Wheezes, NORMAL BREATHING PATTERN. absent: Rales, Rhonchi - Cardiovascular Exam Cardiovascular Exam: REGULAR RHYTHM, +S1, +S2 - GI/Abdominal Exam GI & Abdominal Exam: Soft, Normal Bowel Sounds. absent: Guarding, Rigid, Tenderness - Rectal Exam Rectal Exam: Deferred - Neurological Exam Neurological Exam: Alert, Awake, Normal Gait, Oriented x3 - Psychiatric Exam Psychiatric exam: Normal Affect, Normal Mood - Skin Skin Exam: Dry, Normal Color, Warm Assessment and Plan - Assessment and Plan (Free Text) Assessment: 65 y/o F with PMH of COPD, HLD, CAD s/p stent placement, hypothyroidism, pulmonary hypertension, and DJD with migraines in the setting of COPD exacerbation. Plan: 1. 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 Migraine Headache -Continue Fiorecet and Topamax -Neurology consulted, f/u recommendations 3. Hx of CAD, s/p 3 stents -Continue to monitor on tele -Continue ASA -Troponin is 0.03 on admission, elevated BNP at 1200 -Cardiology consulted, f/u recommendations 4. Constipation -Continue Colace -Will add Miralax BID 5. Hypertension -Continue Cardizem -Losartan and HCTZ 6. Hypothyroidism -Continue Synthroid 7. Hypertriglyceridemia -Continue Fenofibrate 8. GI/DVT ppx -Protonix -Lovenox <Merlin Rdz - Last Filed: 11/12/16 15:12> Objective - Vital Signs/Intake and Output Vital Signs (last 24 hours): Temp Pulse Resp BP Pulse Ox 98 F 96 H 20 143/76 98 11/12/16 12:00 11/12/16 12:00 11/12/16 12:00 11/12/16 12:00 11/12/16 06:00 Intake and Output: 11/12/16 11/12/16 06:59 18:59 Intake Total 580 Balance 580 - Medications Medications: Current Medications Aspirin (Ecotrin) 325 mg PO DAILY [facility] Last Admin: 11/12/16 11:36 Dose: 325 mg Diltiazem HCl (Cardizem) 60 mg PO DAILY [facility] Last Admin: 11/12/16 11:02 Dose: 60 mg Docusate Sodium (Colace) 100 mg PO DAILY [facility] Last Admin: 11/12/16 11:03 Dose: 100 mg Doxycycline Hyclate (Doryx) 100 mg PO Q12 [facility] PRN Reason: Protocol Last Admin: 11/12/16 11:03 Dose: 100 mg Enoxaparin Sodium (Lovenox) 30 mg SC DAILY [facility] PRN Reason: Protocol Last Admin: 11/12/16 11:04 Dose: 30 mg Fenofibrate (Tricor) 145 mg PO DAILY [facility] Last Admin: 11/12/16 11:02 Dose: 145 mg Hydrochlorothiazide (Microzide) 12.5 mg PO DAILY [facility] Last Admin: 11/12/16 11:03 Dose: 12.5 mg Levalbuterol HCl (Xopenex) 0.63 mg IH TIDRESP [facility] Last Admin: 11/12/16 13:52 Dose: 0.63 mg Levothyroxine Sodium (Synthroid) 25 mcg PO DAILY [facility] Last Admin: 11/12/16 11:03 Dose: 25 mcg Losartan Potassium (Cozaar) 100 mg PO DAILY [facility] Last Admin: 11/12/16 11:03 Dose: 100 mg Methylprednisolone (Solu-Medrol) 40 mg IVP Q12 [facility] Last Admin: 11/12/16 11:04 Dose: 40 mg Pantoprazole Sodium (Protonix Ec Tab) 40 mg PO ACB [facility] Last Admin: 11/12/16 11:03 Dose: 40 mg Polyethylene Glycol (Miralax) 17 gm PO BID [facility] Last Admin: 11/12/16 11:04 Dose: 17 gm Sertraline HCl (Zoloft) 50 mg PO DAILY [facility] Last Admin: 11/12/16 11:03 Dose: 50 mg - Labs Labs: 11/12/16 08:20 11/12/16 08:20 PT 10.7 Seconds (9.9-11.8) 11/09/16 12:18 INR 0.99 (0.93-1.08) 11/09/16 12:18 APTT 31.7 Seconds (23.7-30.8) H 11/09/16 12:18 Attending/Attestation - Attestation I have personally seen and examined this patient.: Yes I have fully participated in the care of the patient.: Yes I have reviewed all pertinent clinical information, including history, physical exam and plan: Yes Notes (Text): I have seen and examined the patient at bedside. Agree with the above note with the following additions/ exceptions: Briefly this is 65 year old female with history of COPD, HLD, CAD s/p stent placement, hypothyroidism, pulmonary hypertension, and DJD with migraines who was admitted for COPD exacerbation. Patient feels over all weak and tired. Still have cough with whitish phlegm. Denies chest pain. Continues to wheeze and prolon expiratory phase and is able to talk in short sentences. Continue xopenex, solumedrol taper and doxy. Need PFT's and sleep study as an outpatient. Pulmonary and stonecutter hand on board. Dr Merlin Rdz
--- NOTE | 2016-11-11 22:11 | PN ---
DATE: 11/11/2016 REASON FOR CONSULTATION: Shortness of breath, coronary artery disease, history of stent insertion. SUBJECTIVE: The patient sitting in bed without chest pain or palpitation. Her shortness of breath is improving. She still has cough. PHYSICAL EXAMINATION: VITAL SIGNS: Blood pressure 129/62, respirations 20, pulse 70 and temperature 98.1. HEENT: Head is normocephalic. Eyes: Pupils are normal. Conjunctivae normal. Nose and throat normal. NECK: JVP low. Carotids equal. Thorax AP diameter normal. CARDIOVASCULAR: S1 and S2. LUNGS: Bilateral wheezing. ABDOMEN: Soft and nontender. No organomegaly. EXTREMITIES: No clubbing. No cyanosis. LABORATORY DATA: WBC 23.9, hemoglobin 11.7, hematocrit 35.9 and platelet 223. Sodium 145, potassium 5.1, BUN 19, creatinine 0.7 and random sugar 170. Calcium and bilirubin normal. AST 40 and ALT 50. Total protein 7.2 and albumin 4.1. DIAGNOSES: Exacerbation of chronic obstructive pulmonary disease, respiratory tract infection, coronary artery disease, history of three stents insertion in the past, hypothyroidism, hypertension, pre-diabetic, migraine headaches. PLAN: Clinically, the patient does not have any anginal symptoms. Her symptoms are related to her pulmonary status with exacerbation of COPD and respiratory tract infection. We will continue therapy with present medication Cardizem 60 mg daily, Cozaar 100 mg daily, aspirin 81 daily, Lovenox 30 subcu daily, hydrochlorothiazide 12.5 p.o. daily, Protonix 40 daily, Solu-Medrol 40 mg IV q. 8 hours, levothyroxine 25 mcg daily, fenofibrate 145 mg p.o. daily, Xopenex p.r.n., Zoloft 50 daily The states that she follows her [employer] and pulmonary physician in [place] where she live she just visiting here. She states that she follows cardiac testing with her [employer] in [place]. So, we will continue present therapy and no anginal symptoms at this moment. Bo Dominguez MD
--- NOTE | 2016-11-11 23:48 | PN ---
DATE: 11/11/2016 PULMONARY PROGRESS NOTE REFERRING PHYSICIAN: Dr. Sanches. SUBJECTIVE: Patient is lying in the bed, 45 degrees, feels better. Decreased cough, decreased shortness of breath, decreased nausea. No vomiting. No diarrhea, leg pain or leg swelling. PHYSICAL EXAMINATION GENERAL: No acute distress. VITAL SIGNS: Temperature is 98, heart rate 71, respiratory rate is 20, blood pressure 117/63, pulse ox 97% on 2 liters nasal cannula. HEENT: Moist mucous membranes. ____. NECK: Supple. No JVD. LUNGS: Has a prolonged expiratory phase with some wheezing. HEART: S1 and S2. ABDOMEN: Soft and nontender. No organomegaly. EXTREMITIES: There is no edema. NEUROLOGIC: Awake and alert. Follows simple commands.. MEDICATIONS: She is on Cardizem 60 mg daily, Colace 100 mg daily, Cozaar 100 mg daily, doxycycline 100 mg twice a day, Ecotrin 81 mg daily, Lovenox 30 mg subq daily, hydrochlorothiazide, Septra 5 mg daily, Miralax 17 g twice a day, Protonix 40 mg daily, Solu-Medrol 40 mg q. 8 hours, Synthroid 25 mg daily, Tricor 145 mg daily, Xopenex inhaled 3 times a day, Zoloft p.r.n. basis. LABORATORY DATA: Shows 11.7, hematocrit 35.9, WBC 23.9, platelet count 223, INR 0.99, PTT 32, sodium 145, potassium 5.1, chloride 104, bicarb 28, BUN 19, creatinine 0.7, glucose 170, calcium 9.0, AST 40, ALT 50, alk phos is 55, albumin is 4.1. Microbiology: Blood culture has been negative. IMPRESSION AND PLAN: Sleep apnea syndrome, hyperthyroidism, coronary artery disease, history of coronary stents, chronic headache, chronic obstructive lung disease, heart failure. Pulmonary point of view, doing okay. Decrease Solu-Medrol to 40 q. 12 hours, gastric prophylaxis. Deep vein thrombosis prophylaxis. Sleep apnea precaution. Outpatient attended sleep study, PFT. Bo Johnston MD
[2016-11-12] MEDS: Levalbuterol 0.63 MG/3 ML Inhal Soln UD IH SCH ×3 (07:35→19:27)
--- NOTE | 2016-11-12 07:59 | CP.PCM.PN ---
<Kimberley David - Last Filed: 11/12/16 10:27> Subjective - Date & Time of Evaluation Date of Evaluation: 11/12/16 Time of Evaluation: 07:30 - Subjective Subjective: IM Progress Note, Kimberley David PGY-2 Patient seen and examined at bedside. No acute complaints at this time. No acute or adverse events overnight, as per nursing staff. Pt tolerating NC with no SOB. Pt has mild productive cough with clear phlegm. Pt denied fever, chills , sob, chest pains, abdominal pains, n/v/d/c. Objective - Vital Signs/Intake and Output Vital Signs (last 24 hours): Temp Pulse Resp BP Pulse Ox 97.5 F L 64 20 135/78 98 11/12/16 06:00 11/12/16 06:00 11/12/16 06:00 11/12/16 06:00 11/12/16 06:00 Intake and Output: 11/12/16 11/12/16 06:59 18:59 Intake Total 580 Balance 580 - Medications Medications: Current Medications Aspirin (Ecotrin) 1 mg PO DAILY [facility] Last Admin: 11/11/16 10:47 Dose: 1 mg Diltiazem HCl (Cardizem) 60 mg PO DAILY [facility] Last Admin: 11/11/16 10:49 Dose: 60 mg Docusate Sodium (Colace) 100 mg PO DAILY [facility] Last Admin: 11/11/16 10:48 Dose: 100 mg Doxycycline Hyclate (Doryx) 100 mg PO Q12 [facility] PRN Reason: Protocol Last Admin: 11/11/16 21:58 Dose: 100 mg Enoxaparin Sodium (Lovenox) 30 mg SC DAILY [facility] PRN Reason: Protocol Last Admin: 11/11/16 10:49 Dose: 30 mg Fenofibrate (Tricor) 145 mg PO DAILY [facility] Last Admin: 11/11/16 10:49 Dose: 145 mg Hydrochlorothiazide (Microzide) 12.5 mg PO DAILY [facility] Last Admin: 11/11/16 10:48 Dose: 12.5 mg Levalbuterol HCl (Xopenex) 0.63 mg IH TIDRESP [facility] Last Admin: 11/12/16 07:35 Dose: 0.63 mg Levothyroxine Sodium (Synthroid) 25 mcg PO DAILY [facility] Last Admin: 11/11/16 10:48 Dose: 25 mcg Losartan Potassium (Cozaar) 100 mg PO DAILY [facility] Last Admin: 11/11/16 10:48 Dose: 100 mg Methylprednisolone (Solu-Medrol) 40 mg IVP Q12 [facility] Last Admin: 11/11/16 21:58 Dose: 40 mg Pantoprazole Sodium (Protonix Ec Tab) 40 mg PO ACB [facility] Last Admin: 11/11/16 08:43 Dose: 40 mg Polyethylene Glycol (Miralax) 17 gm PO BID [facility] Last Admin: 11/11/16 17:33 Dose: 17 gm Sertraline HCl (Zoloft) 50 mg PO DAILY [facility] Last Admin: 11/11/16 10:49 Dose: Not Given - Labs Labs: 11/11/16 05:30 11/11/16 05:30 PT 10.7 Seconds (9.9-11.8) 11/09/16 12:18 INR 0.99 (0.93-1.08) 11/09/16 12:18 APTT 31.7 Seconds (23.7-30.8) H 11/09/16 12:18 - Constitutional Appears: No Acute Distress - Head Exam Head Exam: ATRAUMATIC, NORMAL INSPECTION, NORMOCEPHALIC - Eye Exam Eye Exam: EOMI, Normal appearance, PERRL Pupil Exam: NORMAL ACCOMODATION, PERRL - ENT Exam ENT Exam: Mucous Membranes Moist, Normal Exam - Respiratory Exam Respiratory Exam: Wheezes, NORMAL BREATHING PATTERN - Cardiovascular Exam Cardiovascular Exam: REGULAR RHYTHM, +S1, +S2. absent: Murmur - GI/Abdominal Exam GI & Abdominal Exam: Soft, Normal Bowel Sounds. absent: Tenderness - Extremities Exam Extremities Exam: Full ROM, Normal Capillary Refill, Normal Inspection. absent : Joint Swelling, Pedal Edema - Neurological Exam Neurological Exam: Alert, Awake, CN II-XII Intact, Normal Gait, Oriented x3 - Psychiatric Exam Psychiatric exam: Normal Affect, Normal Mood - Skin Skin Exam: Dry, Intact, Normal Color, Warm Assessment and Plan - Assessment and Plan (Free Text) Assessment: 65 F with PMHx of COPD, HLD, CAD s/p stents, hypothyroidism, pulmonary hypertension, and DJD admitted for COPD exacerbation. 1. Acute COPD exacerbation -Stable, afebrile -improved wheezing -Supplemental O2 prn -Continue Xopenex -Solumedrol 40mg Q12H -Doxycycline 100mg BID -Leukocytosis likely 2/2 to steroid use, no active signs of infection -Will need PFT and sleep study as outpatient -Patient reports that she will follow up with box spinner in [place] -Pulm on consult, Dr. Johnston - will have PT eval 2. Migraine Headache -Continue Fiorecet and Topamax -Neurology consulted, f/u recommendations 3. Hx of CAD, s/p 3 stents -Continue to monitor on tele -Continue ASA -Troponin is 0.03 on admission, elevated BNP at 1200 -Cardiology consulted, f/u recommendations 4. Constipation -Continue Colace -Will add Miralax BID 5. Hypertension -Continue Cardizem -Losartan and HCTZ 6. Hypothyroidism -Continue Synthroid 7. Hypertriglyceridemia -Continue Fenofibrate 8. GI/DVT ppx -Protonix -Lovenox Seen reviewed and discussed with attending <Merlin Rdz - Last Filed: 11/12/16 15:37> Objective - Vital Signs/Intake and Output Vital Signs (last 24 hours): Temp Pulse Resp BP Pulse Ox 98 F 96 H 20 143/76 98 11/12/16 12:00 11/12/16 12:00 11/12/16 12:00 11/12/16 12:00 11/12/16 06:00 Intake and Output: 11/12/16 11/12/16 06:59 18:59 Intake Total 580 Balance 580 - Medications Medications: Current Medications Aspirin (Ecotrin) 325 mg PO DAILY [facility] Last Admin: 11/12/16 11:36 Dose: 325 mg Diltiazem HCl (Cardizem) 60 mg PO DAILY [facility] Last Admin: 11/12/16 11:02 Dose: 60 mg Docusate Sodium (Colace) 100 mg PO DAILY [facility] Last Admin: 11/12/16 11:03 Dose: 100 mg Doxycycline Hyclate (Doryx) 100 mg PO Q12 [facility] PRN Reason: Protocol Last Admin: 11/12/16 11:03 Dose: 100 mg Enoxaparin Sodium (Lovenox) 30 mg SC DAILY [facility] PRN Reason: Protocol Last Admin: 11/12/16 11:04 Dose: 30 mg Fenofibrate (Tricor) 145 mg PO DAILY [facility] Last Admin: 11/12/16 11:02 Dose: 145 mg Hydrochlorothiazide (Microzide) 12.5 mg PO DAILY [facility] Last Admin: 11/12/16 11:03 Dose: 12.5 mg Levalbuterol HCl (Xopenex) 0.63 mg IH TIDRESP [facility] Last Admin: 11/12/16 13:52 Dose: 0.63 mg Levothyroxine Sodium (Synthroid) 25 mcg PO DAILY [facility] Last Admin: 11/12/16 11:03 Dose: 25 mcg Losartan Potassium (Cozaar) 100 mg PO DAILY [facility] Last Admin: 11/12/16 11:03 Dose: 100 mg Methylprednisolone (Solu-Medrol) 40 mg IVP Q12 [facility] Last Admin: 11/12/16 11:04 Dose: 40 mg Pantoprazole Sodium (Protonix Ec Tab) 40 mg PO ACB [facility] Last Admin: 11/12/16 11:03 Dose: 40 mg Polyethylene Glycol (Miralax) 17 gm PO BID [facility] Last Admin: 11/12/16 11:04 Dose: 17 gm Sertraline HCl (Zoloft) 50 mg PO DAILY [facility] Last Admin: 11/12/16 11:03 Dose: 50 mg - Labs Labs: 11/12/16 08:20 11/12/16 08:20 PT 10.7 Seconds (9.9-11.8) 11/09/16 12:18 INR 0.99 (0.93-1.08) 11/09/16 12:18 APTT 31.7 Seconds (23.7-30.8) H 11/09/16 12:18 Attending/Attestation - Attestation I have personally seen and examined this patient.: Yes I have fully participated in the care of the patient.: Yes I have reviewed all pertinent clinical information, including history, physical exam and plan: Yes Notes (Text): I have seen and examined the patient at bedside. Agree with the above note with the following additions/ exceptions: Briefly this is 65 year old female with history of COPD (was on home oxygen for 4 years- discontinued couple of months ago by ), HLD, CAD s/p stent placement, hypothyroidism, pulmonary hypertension , and DJD with migraines who was admitted for COPD exacerbation. Patient feels much better however still reports cough with whitish phlegm. Denies chest pain, fever, diarrhea, constipation, urinary frequency or urgency. Continues to have mild diffuse wheeze and prolong expiratory phase and is able to talk in complete sentences. She states that she gets sob upon walking. Continue xopenex, solumedrol taper and doxy. Today she had leukocytosis most likely due to steroids which are being tapered. Ordered CXR 2 views. Need PFT's and sleep study as an outpatient. Pulmonary and truss designer on board. PT eval pending. Upon discharge patient is planning to travel back to [place] and will follow up with PMD. Dr Merlin Rdz
[2016-11-12 08:25] LABS: BASO # 0.01 K/mm3 (0.0-2.0); GRAN # 23.19 (1.4-6.5); GRAN % 87.3 % (50.0-68.0); HEMATOCRIT 38.6 % (36.0-48.0); LYMPH # 2.1 (1.2-3.4); LYMPH % 7.9 % (22.0-35.0); MEAN CELL VOLUME 91.5 fl (80.0-105.0); MEAN CORPUSCULAR HEMOGLOBIN 29.6 pg (25.0-35.0); MEAN CORPUSCULAR HGB CONC 32.4 g/dl (31.0-37.0); MEAN PLATELET VOLUME 11.9 fl (7.0-11.0); MONO # 1.3 (0.1-0.6); MONO % 4.8 % (1.0-6.0)
[2016-11-12 08:30] LABS: WHITE BLOOD COUNT 26.6 10^3/ul (4.5-11.0)
[2016-11-12 08:34] LABS: ALB/GLOB RATIO 1.3 (1.1-1.8); ALKALINE PHOSPHATASE 53 U/L (38-133); ALT/SGPT 56 U/L (7-56); AST/SGOT 38 U/L (15-39); BILIRUBIN,TOTAL 0.5 mg/dL (0.2-1.3); BLOOD UREA NITROGEN 22 mg/dL (7-21); CALCIUM 9.2 mg/dL (8.4-10.5); CARBON DIOXIDE 31 mmol/L (21-33); CHLORIDE 102 mmol/L (98-107); GFR AFRICAN-AMERICAN > 60; GLUCOSE,RANDOM 148 mg/dL (70-110); POTASSIUM 4.3 mmol/L (3.6-5.0); SODIUM 145 mmol/L (132-148); TOTAL PROTEIN 7.5 g/dL (5.8-8.3)
[2016-11-12] MEDS: Levothyroxine 25 MCG TAB PO SCH (11:03)
[2016-11-12] MEDS: Pantoprazole 40 mg EC Tab PO SCH (11:03)
[2016-11-12] MEDS: Enoxaparin 30 mg Syringe SC SCH (11:04)
[2016-11-12] MEDS: POLYETHYLENE GLYCOL 3350 17 GM/Dose PACKET PO SCH ×2 (11:04→18:09)
[2016-11-12] MEDS: MethylPREDNISolone 40 mg Vial IVP SCH (11:04)
[2016-11-12] MEDS: Aspirin 325 mg EC Tablets PO SCH ×2 (11:35→11:36)
[2016-11-12] MEDS ORDERED: Aspirin 325 mg EC Tablets PO SCH (11:35)
--- NOTE | 2016-11-12 14:37 | PN ---
DATE: 11/12/2016 LOCATION: The patient in room 269, bed 2. REASON FOR CONSULTATION: Followup shortness of breath, coronary artery disease, history of stent insertion. SUBJECTIVE: The patient denies any chest pain or palpitation. Patient says that her breathing is getting better. She still has some cough and expectoration. PHYSICAL EXAMINATION VITAL SIGNS: Blood pressure 135/78, respirations 20, pulse 64 and temperature 97.5. HEENT: Head is normocephalic. Eyes; pupils are normal. Conjunctivae normal. NECK: JVP low. Carotids equal. Thorax AP diameter normal. LUNGS: Few wheezing. No rales. CARDIOVASCULAR: S1 and S2. ABDOMEN: Soft, nontender. No organomegaly. Bowel sounds normal. EXTREMITIES: No clubbing. No cyanosis. LABORATORY DATA: WBC 26.6, hemoglobin 12.5, hematocrit 38.6 and platelet 249. Sodium 145, potassium 4.3, BUN 22, creatinine 0.8, random glucose 148, AST and ALT normal, total protein and albumin normal. DIAGNOSES: Patient's symptoms related to exacerbation of chronic obstructive pulmonary disease, respiratory tract infection, coronary artery disease, history of 3 stents insertion, no anginal symptoms, hypertension, prediabetic, migraine headaches, hypothyroidism. PLAN: Patient is to continue diltiazem 60 mg p.o. daily, Cozaar 100 mg daily, aspirin 325 p.o. daily, Lovenox 30 daily, hydrochlorothiazide 12.5 daily, Protonix 40 daily, Solu-Medrol 40 mg IV q. 12 hours, levothyroxine 25 mcg p.o. daily, Tricor 145 mg p.o. daily, Zoloft 50 mg daily. We will continue present therapy. We will follow. Bo Dominguez MD
--- NOTE | 2016-11-12 16:14 | RAD ---
HISTORY: r/o infiltrate COMPARISON: Comparison made with chest radiograph 11/09/2016 TECHNIQUE: Chest PA and lateral FINDINGS: LUNGS: Previously noted coarsened/increased interstitial markings with scattered peribronchial cuffing changes improved. Findings likely represent the sequela of reactive/inflammatory airway disease or viral illness. . No focal consolidation. PLEURA: No significant pleural effusion identified. No pneumothorax apparent. CARDIOVASCULAR: Normal. OSSEOUS STRUCTURES: No significant abnormalities. VISUALIZED UPPER ABDOMEN: Normal. OTHER FINDINGS: None. IMPRESSION: Previously noted coarsened/increased interstitial markings with scattered peribronchial cuffing changes improved. Findings likely represent the sequela of reactive/inflammatory airway disease or viral illness. . No focal consolidation.
--- NOTE | 2016-11-12 19:17 | PN ---
DATE: 11/12/2016 PULMONARY PROGRESS NOTE REFERRING PHYSICIAN: Josselyn Sanches MD. SUBJECTIVE: Patient is lying in the bed, 45 degrees, feels better. Decreased cough, decreased shortness of breath. No nausea. No vomiting. No diarrhea, leg pain or leg swelling. PHYSICAL EXAMINATION GENERAL: In no distress. VITAL SIGNS: Temperature is 98, heart rate is 96, respiratory rate is 21, blood pressure is 143/76, pulse oximetry 97% on 2 liters nasal cannula. HEENT: Moist mucous membranes. Crowded airway. NECK: Supple. No JVD. LUNGS: Have a prolonged expiratory phase. No more wheezing. HEART: S1 and S2. ABDOMEN: Soft and nontender. No organomegaly. EXTREMITIES: There is no edema. NEUROLOGIC: Awake and alert. Follows simple commands. MEDICATIONS: She is on Cardizem 60 mg daily, Colace 100 mg daily, Cozaar 100 mg daily, doxycycline 100 mg twice a day, Ecotrin 325 mg daily, Lovenox 30 mg subcutaneous daily, hydrochlorothiazide 12.5 mg daily, Miralax 17 g twice a day, Protonix 40 mg daily, Solu-Medrol 40 mg q. 12 hours, Synthroid 25 mcg daily, Tricor 145 mg daily, Xopenex inhaled 3 times a day, and Zoloft p.r.n. basis. LABORATORY DATA: Shows hemoglobin 12.5, hematocrit 38.6, WBC 26,000, platelet count is 249. Sodium 145, potassium 4.3, chloride 102, bicarbonate 31, BUN 22, creatinine 0.8, glucose 148, calcium 9.2, AST 38, ALT 56, albumin is 4.3. Microbiology: Blood culture has been negative. IMPRESSION AND PLAN: Sleep apnea syndrome, hypothyroidism, coronary artery disease, history of coronary stents, chronic headache, chronic obstructive lung disease, heart failure. Continue to discontinue Solu-Medrol, place on prednisone 20 mg p.o. daily. Continue antibiotics. Will need sleep apnea attended sleep study as the outpatient upon discharge. Thank you and we will follow with you. Bo Johnston MD
[2016-11-13 06:49] VITALS: O2SAT 93
[2016-11-13] MEDS: Levalbuterol 0.63 MG/3 ML Inhal Soln UD IH SCH (07:25)
[2016-11-13 08:15] LABS: BASO # 0.02 K/mm3 (0.0-2.0); BASO % 0.1 % (0.0-3.0); EOS % 0.1 % (1.5-5.0); GRAN # 16.4 (1.4-6.5); GRAN % 76.2 % (50.0-68.0); HEMATOCRIT 38.2 % (36.0-48.0); LYMPH # 3.4 (1.2-3.4); LYMPH % 15.8 % (22.0-35.0); MEAN CELL VOLUME 92.3 fl (80.0-105.0); MEAN CORPUSCULAR HEMOGLOBIN 29.2 pg (25.0-35.0); MEAN CORPUSCULAR HGB CONC 31.7 g/dl (31.0-37.0); MEAN PLATELET VOLUME 12.3 fl (7.0-11.0); MONO # 1.7 (0.1-0.6); MONO % 7.8 % (1.0-6.0); RED CELL DISTRIBUTION WIDTH 14.2 % (11.5-14.5); WHITE BLOOD COUNT 21.5 10^3/ul (4.5-11.0)
[2016-11-13 08:29] LABS: ALB/GLOB RATIO 1.3 (1.1-1.8); ALKALINE PHOSPHATASE 65 U/L (38-133); ALT/SGPT 80 U/L (7-56); AST/SGOT 43 U/L (15-39); BILIRUBIN,TOTAL 0.5 mg/dL (0.2-1.3); BLOOD UREA NITROGEN 22 mg/dL (7-21); CALCIUM 8.7 mg/dL (8.4-10.5); CARBON DIOXIDE 32 mmol/L (21-33); CHLORIDE 101 mmol/L (98-107); GFR AFRICAN-AMERICAN > 60; GLUCOSE,RANDOM 97 mg/dL (70-110); SODIUM 142 mmol/L (132-148); TOTAL PROTEIN 6.8 g/dL (5.8-8.3)
[2016-11-13] MEDS: Pantoprazole 40 mg EC Tab PO SCH (09:27)
[2016-11-13] MEDS: Levothyroxine 25 MCG TAB PO SCH (09:28)
[2016-11-13] MEDS: Aspirin 325 mg EC Tablets PO SCH (09:32)
[2016-11-13] MEDS: Enoxaparin 30 mg Syringe SC SCH (09:32)
[2016-11-13] MEDS: POLYETHYLENE GLYCOL 3350 17 GM/Dose PACKET PO SCH (09:34)
--- NOTE | 2016-11-13 10:57 | CP.PCM.DIS ---
<Jone Ho - Last Filed: 11/13/16 10:50> Provider - Provider Date of Admission: 11/10/16 11:33 Attending physician: Merlin Rdz MD Time Spent in preparation of Discharge (in minutes): 35 Diagnosis - Discharge Diagnosis (1) COPD exacerbation Status: Resolved Priority: High (2) Pulmonary HTN Status: Chronic Priority: High (3) CAD (coronary artery disease) Status: Chronic Priority: Medium (4) History of heart artery stent Status: Chronic Priority: Medium (5) HLD (hyperlipidemia) Status: Chronic Priority: Low (6) Hypothyroidism Status: Chronic Priority: Low Hospital Course - Lab Results Lab Results: Most Recent Lab Values WBC 21.5 10^3/ul (4.5-11.0) H 11/13/16 07:20 RBC 4.14 10^6/uL (3.5-6.1) 11/13/16 07:20 Hgb 12.1 g/dL (12.0-16.0) 11/13/16 07:20 Hct 38.2 % (36.0-48.0) 11/13/16 07:20 MCV 92.3 fl (80.0-105.0) 11/13/16 07:20 MCH 29.2 pg (25.0-35.0) 11/13/16 07:20 MCHC 31.7 g/dl (31.0-37.0) 11/13/16 07:20 RDW 14.2 % (11.5-14.5) 11/13/16 07:20 Plt Count 255 10^3/uL (120.0-450.0) 11/13/16 07:20 MPV 12.3 fl (7.0-11.0) H 11/13/16 07:20 Gran % 76.2 % (50.0-68.0) H 11/13/16 07:20 Lymph % (Auto) 15.8 % (22.0-35.0) L 11/13/16 07:20 [place] % (Auto) 7.8 % (1.0-6.0) H 11/13/16 07:20 Eos % (Auto) 0.1 % (1.5-5.0) L 11/13/16 07:20 Baso % (Auto) 0.1 % (0.0-3.0) 11/13/16 07:20 Gran # 16.40 (1.4-6.5) H 11/13/16 07:20 Lymph # 3.4 (1.2-3.4) 11/13/16 07:20 [place] # 1.7 (0.1-0.6) H 11/13/16 07:20 Eos # 0.0 (0.0-0.7) 11/13/16 07:20 Baso # 0.02 K/mm3 (0.0-2.0) 11/13/16 07:20 PT 10.7 Seconds (9.9-11.8) 11/09/16 12:18 INR 0.99 (0.93-1.08) 11/09/16 12:18 APTT 31.7 Seconds (23.7-30.8) H 11/09/16 12:18 pCO2 32 mm/Hg (35-45) L 11/09/16 12:20 pO2 86.0 mm/Hg (80-100) 11/09/16 12:20 HCO3 23.3 mmol/L (21-28) 11/09/16 12:20 ABG pH 7.47 (7.35-7.45) H 11/09/16 12:20 ABG Total CO2 24.3 mmol.L (22-28) 11/09/16 12:20 ABG O2 Saturation 97.7 % (95-98) 11/09/16 12:20 ABG Base Excess 0.2 mmol/L (-2.0-3.0) 11/09/16 12:20 ABG Potassium 3.6 mmol/L (3.6-5.2) 11/09/16 12:20 Sodium 141.0 mmol/L (132-148) 11/09/16 12:20 Chloride 108.0 mmol/L (98-107) H 11/09/16 12:20 Glucose 102 mg/dl (65-105) 11/09/16 12:20 Lactate 1.0 mmol/L (0.7-2.1) 11/09/16 12:20 FiO2 21.0 % 11/09/16 12:20 Sodium 142 mmol/L (132-148) 11/13/16 07:20 Potassium 5.0 mmol/L (3.6-5.0) 11/13/16 07:20 Chloride 101 mmol/L (98-107) 11/13/16 07:20 Carbon Dioxide 32 mmol/L (21-33) 11/13/16 07:20 Anion Gap 14 (10-20) 11/13/16 07:20 BUN 22 mg/dL (7-21) H 11/13/16 07:20 Creatinine 0.8 mg/dL (0.5-1.4) 11/13/16 07:20 Est GFR ( Amer) > 60 11/13/16 07:20 Est GFR (Non-Af Amer) > 60 11/13/16 07:20 Random Glucose 97 mg/dL (70-110) 11/13/16 07:20 Calcium 8.7 mg/dL (8.4-10.5) 11/13/16 07:20 Total Bilirubin 0.5 mg/dL (0.2-1.3) 11/13/16 07:20 AST 43 U/L (15-39) H 11/13/16 07:20 ALT 80 U/L (7-56) H 11/13/16 07:20 Alkaline Phosphatase 65 U/L (38-133) 11/13/16 07:20 Lactate Dehydrogenase 751 U/L (333-699) H 11/09/16 12:18 Total Creatine Kinase 186 U/L (35-230) 11/09/16 12:18 Troponin I 0.03 ng/mL 11/09/16 12:18 NT-Pro-B Natriuret Pep 1200 pg/mL (0-450) H 11/09/16 12:18 Total Protein 6.8 g/dL (5.8-8.3) 11/13/16 07:20 Albumin 3.8 g/dL (3.0-4.8) 11/13/16 07:20 Globulin 3.0 gm/dL 11/13/16 07:20 Albumin/Globulin Ratio 1.3 (1.1-1.8) 11/13/16 07:20 Lipase 78 U/L (23-300) 11/09/16 12:18 Arterial Blood Potassium 3.6 mmol/L (3.6-5.2) 11/09/16 12:20 Urine Color Light yellow (YELLOW) 11/09/16 14:46 Urine Appearance Clear (CLEAR) 11/09/16 14:46 Urine pH 6.0 (4.7-8.0) 11/09/16 14:46 Ur Specific [place] 1.015 (1.005-1.035) 11/09/16 14:46 Urine Protein Negative mg/dL (<30 mg/dL) 11/09/16 14:46 Urine Glucose (UA) Negative mg/dL (NEGATIVE) 11/09/16 14:46 Urine Ketones Negative mg/dL (NEGATIVE) 11/09/16 14:46 Urine Blood Negative (NEGATIVE) 11/09/16 14:46 Urine Nitrate Negative (NEGATIVE) 11/09/16 14:46 Urine Bilirubin Negative (NEGATIVE) 11/09/16 14:46 Urine Urobilinogen 0.2 E.U./dL (<1 E.U./dL) 11/09/16 14:46 Ur Leukocyte Esterase Negative [place]/uL (NEGATIVE) 11/09/16 14:46 Stool Occult Blood Negative (NEGATIVE) 11/12/16 20:20 - Hospital Course Hospital Course: This is a 65 yo F with PMH of COPD (previously on home O2), HLD, CAD s/ p stent placement, hypothyroidism, pulmonary hypertension, DJD, and migraines who presented to [facility] with complaint of fever, cough, and migraine headache for 4 days not alleviated by home fioricet, and was later determined to have a COPD exacerbation. While here, the patient was seen by Neuro, Pulm, and Cardio. As per cardio, patient already on appropriate regimen, and sx more likely due to COPD exacerbation than cardiac event; she should continue home meds and follow up with her regular pmo manager when she returns to [place]. As per Neuro , continue Fioricet for migraines and add Topamax to assist, no other intervention needed. As per Pulm, likely COPD exacerbation, continue with antibiotics, converted to PO steroids from solumedrol, and will need an outpatient sleep study and PFTs after discharge. Patient seen and examined at bedside today, only complaint is some gastric "burning" overnight after taking all of her pills. She was given scripts for 7- day course of Doxycycline, 30 days of Omeprazole (continuation of home med), and 20mg PO Prednisone steroid taper. She was instructed to fill scripts and take as prescribed, to resume all home meds, to follow up with her PMD or in the [facility] clinic within 1 week, and to follow up with her PMD/Lock Setter upon return to [place]. Patient expressed understanding and agreement with these instructions. All questions were answered to her satisfaction, then she was discharged. Patient seen, reviewed, and discussed with attending, Dr. Merlin Rdz. Discharge Exam - Additional Findings Additional findings: - Constitutional Appears: No Acute Distress, Resting comfortably in bed - Head Exam Head Exam: ATRAUMATIC, NORMAL INSPECTION, NORMOCEPHALIC - Eye Exam Eye Exam: EOMI, Normal appearance. Absent: no scleral icterus, Conjunctival injection Pupil Exam: Absent: Irregular, Unequal - ENT Exam ENT Exam: Mucous Membranes Moist, Normal Exam - Respiratory Exam Respiratory Exam: NORMAL BREATHING PATTERN, CTAB. Absent: Tachypnea, Cyanosis, Wheezes/Rales/Ronchi, Decreased breath sounds - Cardiovascular Exam Cardiovascular Exam: RRR, +S1, +S2. absent: Murmur, Tachycardia, Bradycardia, JVD - GI/Abdominal Exam GI & Abdominal Exam: Soft, Normal Bowel Sounds. absent: Tenderness, Rigid/Firm - Extremities Exam Extremities Exam: Full ROM, Normal Capillary Refill, Normal Inspection. absent : Joint Swelling, Pedal Edema - Neurological Exam Neurological Exam: Alert, Awake, Moving all extremities spontaneously, Following all commands appropriately - Psychiatric Exam Psychiatric exam: Normal Affect, Normal Mood - Skin Skin Exam: Dry, Intact, Normal Color, Warm Discharge Plan - Discharge Medications Prescriptions: RX: Doxycycline Hyclate 100 mg PO DAILY #7 cap Omeprazole [Omeprazole] 20 mg PO DAILY #30 tab predniSONE [Prednisone] See Taper PO DAILY #5 tab - Follow Up Plan Condition: FAIR Disposition: HOME/ ROUTINE Patient education suggested?: Yes Instructions: Coronary Artery Disease (DC), Migraine Headache (DC), COPD ( Chronic Obstructive Pulmonary Disease) (DC), Coronary Artery Disease in Women ( DC) Additional Instructions: Please fill and take all scripts as prescribed Please follow up with your PMD or at the [facility] within 1 week of discharge Please follow up with your PMD and your Lock Setter when you return to [place] Please return to the hospital if you experience new/worsening shortness of breath, or if you experience new concerning symptoms. Referrals: [facility] at [facility] [Outside] <Merlin Rdz B - Last Filed: 11/13/16 12:24> Provider - Provider Date of Admission: 11/10/16 11:33 Attending physician: Merlin Rdz MD Hospital Course - Lab Results Lab Results: Most Recent Lab Values WBC 21.5 10^3/ul (4.5-11.0) H 11/13/16 07:20 RBC 4.14 10^6/uL (3.5-6.1) 11/13/16 07:20 Hgb 12.1 g/dL (12.0-16.0) 11/13/16 07:20 Hct 38.2 % (36.0-48.0) 11/13/16 07:20 MCV 92.3 fl (80.0-105.0) 11/13/16 07:20 MCH 29.2 pg (25.0-35.0) 11/13/16 07:20 MCHC 31.7 g/dl (31.0-37.0) 11/13/16 07:20 RDW 14.2 % (11.5-14.5) 11/13/16 07:20 Plt Count 255 10^3/uL (120.0-450.0) 11/13/16 07:20 MPV 12.3 fl (7.0-11.0) H 11/13/16 07:20 Gran % 76.2 % (50.0-68.0) H 11/13/16 07:20 Lymph % (Auto) 15.8 % (22.0-35.0) L 11/13/16 07:20 [place] % (Auto) 7.8 % (1.0-6.0) H 11/13/16 07:20 Eos % (Auto) 0.1 % (1.5-5.0) L 11/13/16 07:20 Baso % (Auto) 0.1 % (0.0-3.0) 11/13/16 07:20 Gran # 16.40 (1.4-6.5) H 11/13/16 07:20 Lymph # 3.4 (1.2-3.4) 11/13/16 07:20 [place] # 1.7 (0.1-0.6) H 11/13/16 07:20 Eos # 0.0 (0.0-0.7) 11/13/16 07:20 Baso # 0.02 K/mm3 (0.0-2.0) 11/13/16 07:20 PT 10.7 Seconds (9.9-11.8) 11/09/16 12:18 INR 0.99 (0.93-1.08) 11/09/16 12:18 APTT 31.7 Seconds (23.7-30.8) H 11/09/16 12:18 pCO2 32 mm/Hg (35-45) L 11/09/16 12:20 pO2 86.0 mm/Hg (80-100) 11/09/16 12:20 HCO3 23.3 mmol/L (21-28) 11/09/16 12:20 ABG pH 7.47 (7.35-7.45) H 11/09/16 12:20 ABG Total CO2 24.3 mmol.L (22-28) 11/09/16 12:20 ABG O2 Saturation 97.7 % (95-98) 11/09/16 12:20 ABG Base Excess 0.2 mmol/L (-2.0-3.0) 11/09/16 12:20 ABG Potassium 3.6 mmol/L (3.6-5.2) 11/09/16 12:20 Sodium 141.0 mmol/L (132-148) 11/09/16 12:20 Chloride 108.0 mmol/L (98-107) H 11/09/16 12:20 Glucose 102 mg/dl (65-105) 11/09/16 12:20 Lactate 1.0 mmol/L (0.7-2.1) 11/09/16 12:20 FiO2 21.0 % 11/09/16 12:20 Sodium 142 mmol/L (132-148) 11/13/16 07:20 Potassium 5.0 mmol/L (3.6-5.0) 11/13/16 07:20 Chloride 101 mmol/L (98-107) 11/13/16 07:20 Carbon Dioxide 32 mmol/L (21-33) 11/13/16 07:20 Anion Gap 14 (10-20) 11/13/16 07:20 BUN 22 mg/dL (7-21) H 11/13/16 07:20 Creatinine 0.8 mg/dL (0.5-1.4) 11/13/16 07:20 Est GFR ( Amer) > 60 11/13/16 07:20 Est GFR (Non-Af Amer) > 60 11/13/16 07:20 Random Glucose 97 mg/dL (70-110) 11/13/16 07:20 Calcium 8.7 mg/dL (8.4-10.5) 11/13/16 07:20 Total Bilirubin 0.5 mg/dL (0.2-1.3) 11/13/16 07:20 AST 43 U/L (15-39) H 11/13/16 07:20 ALT 80 U/L (7-56) H 11/13/16 07:20 Alkaline Phosphatase 65 U/L (38-133) 11/13/16 07:20 Lactate Dehydrogenase 751 U/L (333-699) H 11/09/16 12:18 Total Creatine Kinase 186 U/L (35-230) 11/09/16 12:18 Troponin I 0.03 ng/mL 11/09/16 12:18 NT-Pro-B Natriuret Pep 1200 pg/mL (0-450) H 11/09/16 12:18 Total Protein 6.8 g/dL (5.8-8.3) 11/13/16 07:20 Albumin 3.8 g/dL (3.0-4.8) 11/13/16 07:20 Globulin 3.0 gm/dL 11/13/16 07:20 Albumin/Globulin Ratio 1.3 (1.1-1.8) 11/13/16 07:20 Lipase 78 U/L (23-300) 11/09/16 12:18 Arterial Blood Potassium 3.6 mmol/L (3.6-5.2) 11/09/16 12:20 Urine Color Light yellow (YELLOW) 11/09/16 14:46 Urine Appearance Clear (CLEAR) 11/09/16 14:46 Urine pH 6.0 (4.7-8.0) 11/09/16 14:46 Ur Specific [place] 1.015 (1.005-1.035) 11/09/16 14:46 Urine Protein Negative mg/dL (<30 mg/dL) 11/09/16 14:46 Urine Glucose (UA) Negative mg/dL (NEGATIVE) 11/09/16 14:46 Urine Ketones Negative mg/dL (NEGATIVE) 11/09/16 14:46 Urine Blood Negative (NEGATIVE) 11/09/16 14:46 Urine Nitrate Negative (NEGATIVE) 11/09/16 14:46 Urine Bilirubin Negative (NEGATIVE) 11/09/16 14:46 Urine Urobilinogen 0.2 E.U./dL (<1 E.U./dL) 11/09/16 14:46 Ur Leukocyte Esterase Negative [place]/uL (NEGATIVE) 11/09/16 14:46 Stool Occult Blood Negative (NEGATIVE) 11/12/16 20:20 Attending/Attestation - Attestation I have personally seen and examined this patient.: Yes I have fully participated in the care of the patient.: Yes I have reviewed all pertinent clinical information, including history, physical exam and plan: Yes Notes (Text): I have seen and examined the patient at bedside. Agree with the above note with the following additions/ exceptions: Briefly this is 65 year old female with history of COPD (was on home oxygen for 4 years- discontinued couple of months ago by ), HLD, CAD s/p stent placement, hypothyroidism, pulmonary hypertension , and DJD with migraines who was admitted for COPD exacerbation. Patient feels much better however still reports mild cough with whitish phlegm. Denies chest pain, fever, diarrhea, constipation, urinary frequency or urgency. Today she is able to talk in complete sentences and is able to walk in the hallway. Continue prednisone taper and doxy. Today she had persistent leukocytosis most likely due to steroids which are being tapered. Advised patient to have repeat CBC in 2-3 week at PMD's office. Need PFT's and sleep study as an outpatient. Upon discharge patient is planning to travel back to [place] and will follow up with PMD. Dr Merlin Rdz
[2016-11-13 11:55] VITALS: BP 120/66; PULSE 73; RESP 18; TEMP 98.1
--- NOTE | 2016-11-13 15:04 | PN ---
DATE: 11/13/2016 LOCATION: The patient in room 269, bed 2. REASON FOR CONSULTATION: Followup shortness of breath, coronary artery disease, history of stent insertion. SUBJECTIVE: The patient's breathing is much better now. Her cough and expectoration also improved. The patient denies any chest pain or palpitation. The patient lying flat in bed without any shortness of breath. PHYSICAL EXAMINATION VITAL SIGNS: Blood pressure 120/66, respirations 18, pulse 76, temperature 98.1. HEENT: Head is normocephalic. Eyes: Pupils normal. Conjunctiva normal. Nose and throat normal. NECK: JVP low. Carotids equal. Thorax AP diameter normal. LUNGS: No rales. CARDIOVASCULAR: S1 and S2. ABDOMEN: Soft, nontender. No organomegaly. Bowel sounds normal. EXTREMITIES: No clubbing. No cyanosis. LABORATORY DATA: WBC 21.5, hemoglobin 12.1, hematocrit 38.2, platelet 255. Sodium 140, potassium 5.0, BUN 22, creatinine 0.8, AST 43, ALT 80, total protein 6.8, albumin 3.9. DIAGNOSES: Exacerbation of chronic obstructive pulmonary disease, respiratory tract infection, coronary artery disease, history of three stents insertion in the past, no angina symptoms, hypertension, prediabetic, migraine headaches, and hypothyroidism. PLAN: Continue Diltiazem 60 mg p.o. daily, Cozaar 100 mg daily, aspirin 325 daily, Lovenox 30 mg subcu daily, hydrochlorothiazide 12.5 mg daily, Protonix 40 daily, Tricor 145 mg daily, levothyroxine 25 mcg p.o. daily. We will continue present therapy and we will follow. Bo Dominguez MD
== END 2016-11-13 14:09 | disposition home or self-care (01) | DRG 192 ==
LOC: ED 11:10 → ERH 14:02 → 2RNO 17:31 → OBSVTOIN 11-10 11:33
PROVIDERS: ADMIT Internal Medicine; ATTEND Hospitalist
PROC: 3E0F7GC Introduction of Other Therapeutic Substance into Respiratory Tract, Via Natural or Artificial Opening (ICD-10-PCS; principal; 2016-11-10)
DX: J44.1 Chronic obstructive pulmonary disease with (acute) exacerbation (principal); I27.2 Other secondary pulmonary hypertension; I50.9 Heart failure, unspecified; I11.0 Hypertensive heart disease with heart failure; I25.10 Atherosclerotic heart disease of native coronary artery without angina pectoris; E03.9 Hypothyroidism, unspecified; G43.909 Migraine, unspecified, not intractable, without status migrainosus; K59.00 Constipation, unspecified; G47.30 Sleep apnea, unspecified; R73.03 Prediabetes; M19.90 Unspecified osteoarthritis, unspecified site; E78.5 Hyperlipidemia, unspecified; K29.70 Gastritis, unspecified, without bleeding; D72.829 Elevated white blood cell count, unspecified; T38.0X5A Adverse effect of glucocorticoids and synthetic analogues, initial encounter; I25.2 Old myocardial infarction; Z95.5 Presence of coronary angioplasty implant and graft; Z79.82 Long term (current) use of aspirin; Z87.891 Personal history of nicotine dependence; Z83.3 Family history of diabetes mellitus; Z82.49 Family history of ischemic heart disease and other diseases of the circulatory system